=== PATIENT | female | born 1950 | race Caucasian/White ===

== ENCOUNTER → 2023-12-18 09:39 | Outpatient (REF) | payer MEDICARE, BC, SELFPAY ==
[2023-12-18 10:30] LABS: Blood Urea Nitrogen 22 mg/dl (7-17); Calcium 9.8 mg/dl (8.4-10.2); Carbon Dioxide 28 mmol/L (22-30); Chloride 102 mmol/L (98-107); Glucose 317 mg/dl (70-99); Magnesium 1.8 mg/dl (1.6-2.3); Potassium 4.3 mmol/L (3.5-5.1); Sodium 137 mmol/L (135-145); eGFR > 60.00
== END ==
LOC: REG 09:39
PROVIDERS: ATTENDING PHYSICIAN Internal Medicine Cardiovascular Disease; FAMILY PHYSICIAN Internal Medicine Cardiovascular Disease; REFERRING PHYSICIAN Internal Medicine
DX: I50.20 Unspecified systolic (congestive) heart failure (principal)
CPT/HCPCS: 36415; 80048; 83735

== ENCOUNTER 2024-02-23 18:13 | Outpatient (RCR) | payer MEDICARE, BC, SELFPAY | END 2024-02-23 23:59 | disposition home or self-care (01) | LOC: CRHB 18:13 | PROVIDERS: ATTENDING PHYSICIAN Internal Medicine Cardiovascular Disease | DX: I50.22 Chronic systolic (congestive) heart failure (principal); I25.10 Atherosclerotic heart disease of native coronary artery without angina pectoris; Z95.1 Presence of aortocoronary bypass graft; Z95.5 Presence of coronary angioplasty implant and graft | CPT/HCPCS: G0422 ==

== ENCOUNTER 2024-02-26 12:10 | Observation (INO) | payer MEDICARE, BC, SELFPAY ==
[2024-02-26] VITALS (32 sets, daily range): BP systolic 77–124; BP diastolic 41–84; BMI 28.7; BMI 29.1
[2024-02-26 08:13] LABS: Glucose - Point of Care 239 mg/dl (70-99)
[2024-02-26] MEDS: ZOFRAN 4 MG IV (08:38)
--- NOTE | 2024-02-26 08:42 | ED.GENMED ---
History of Present Illness
<Francy Bond NP - Last Filed: 02/26/24 15:59>
General
Chief Complaint: Fainting/Passed Out
Source: patient
Exam Limitations: none
Time Seen by Provider: 02/26/24 08:11
Nursing documentation reviewed up to this point in time: agreed with
Travel History
Have you had any contact with someone who has COVID-19?: No
Do you have any symptoms of coronavirus? Fever > 100 degrees, chills, cough, shortness of breath, sore throat, loss of taste or smell, muscle aches, or headache?: No
History of Present Illness
History of Present Illness:
73-year-old female with history of CHF HFrEF 35% , HTN, HLD, GERD, brittle IDDM, sleep apnea with CPAP, RA, hypothyroid, near syncope on Midodrine, presents from cardiac rehab for near syncope.
Patient had quadruple bypass 06/2023, was to start cardiac rehab in 07/2023 but at her first visit had near syncope so it was put off until today when she was just started again, her first day back again and again at 7:30 AM while sitting watching TV
'I got all sweaty and felt like I was going to pass out.' [place] nauseous but no vomiting. She states the TV screen got all blurry, she was nauseous and lightheaded, no loss of consciousness but near syncope.
She had a bagel for breakfast at 6:45.
Currently feels nauseous and lightheaded. Denies CP, SOB, abdominal pain. No UTI symptoms. Appetite has been good.
She has a history of near syncope. Between s incident and now she has had 3 near syncopal episodes at home where she just sits down and her gets her some water and it passes.
Had defibrillator implanted ICD dual chamber 12/12/23
11/15/2023 due to hypotension, her and Coreg was reduced to 12.5 mg twice a day, Lasix was reduced to 40 mg daily and Aldactone placed on hold 11/15/2023
11/20/23 with hypotension and near syncope: She misunderstood and has continued to take Lasix 40 mg twice a day and Aldactone 12.5 mg daily. Is on Midodrine 2.5 mg BID
Past History
<Francy Bond, METER REPAIRER HELPER - Last Filed: 02/26/24 15:59>
Past History
ED Past Medical History: Asthma, HTN, IDDM and Other (Rheumatoid arthritis)
ED Past Surgical History: Cardiac, Gynecological and Orthopedic
Patient has exhibited threatening behavior?: No
PSI?: No
Social History
Tobacco: Non-smoker
Alcohol: None
Drug: None
Review of Systems
<Francy Bond, METER REPAIRER HELPER - Last Filed: 02/26/24 15:59>
Review of Systems
Allergies reviewed?: Yes
All Other Systems: ROS reviewed and negative except as documented in HPI and ROS
Constitutional: Reports fatigue
Respiratory: Denies trouble breathing
Cardiac: Reports diaphoresis; Denies chest pain, palpitations or syncope (near syncope)
ABD/GI: Reports nausea and vomiting; Denies abdominal pain, diarrhea, bloody stools, black stools or anorexia
: Denies dysuria, frequency or difficulty voiding
Musculoskeletal: Reports no symptoms
Skin: Reports no symptoms
Neurological: Reports no symptoms
Phy Exam
<Francy Bond, METER REPAIRER HELPER - Last Filed: 02/26/24 15:59>
Physical Exam
Physical Exam:
GENERAL: No acute distress. A&Ox3.
CONSTITUTIONAL: Afebrile.
EYES: PERRL, conjunctivae normal
ENMT: moist mucus membranes, Pharynx nl
RESPIRATORY: Regular respirations, nonlabored, lungs clear.
CARDIOVASCULAR: Regular rate and rhythm, no murmurs, no rubs.
GI: Soft, nontender, normal BS
MUSCULOSKELETAL: Moves with ease. Well perfused.
SKIN: Warm, dry, pink
PSYCH: Normal mood and affect. Well kept, interactive and appropriate
NEUROLOGIC: Awake, alert and oriented. No focal neurological deficits
Course
<Francy Bond METER REPAIRER HELPER - Last Filed: 02/26/24 15:59>
Orders/Labs/Results
Orders:
Orders
02/26/24 08:11
Electrocardiogram (*1) Urgent
Reason for Study: Syncope
02/26/24 08:12
EKG- Treatment ONCE
02/26/24 08:35
Ondansetron Injectable [Zofran] 4 mg .ROUTE .[facility]
02/26/24 08:37
Ondansetron Injectable [Zofran] 4 mg IV NOW STA
02/26/24 08:38
0.9% Sodium Chloride 500 ml [Nss] 500 ml IV BOLUS
02/26/24 08:40
CMP [Comprehensive Metabolic Panel] Urgent
Complete Blood Count/With Diff Urgent
NT-proBNP Urgent
Comment: ADD ON
Troponin I Urgent
02/26/24 08:54
CR Chest - 2 Views Urgent
Comment:
Reason For Exam: near syncope, hypotension
02/26/24 09:00
Add On- LAB Urgent
Tests Added?: Pto BNP
02/26/24 Lunch
1800 calorie (15 carb) Diabetic
At Your Request: Limited Participation
02/26/24 10:45
CARDIOLOGY CONSULT Urgent
Consulting Provider: Kaitlin Mcclellan
Was physician already notified: Yes
Reason for consult: Near syncope, hypotension
02/26/24 11:43
Admit/Transfer Patient As Directed
Co-Sign Provider:
Level of Care: Observation services
Assign to:: Telemetry
Physician / Group: Eugenio
Diagnosis: Near syncope
Reason for Telemetry: Syncope
Date to Stop Telemetry: 02/28/24
Time to Stop Telemetry: 11:00
02/26/24 11:55
Code Status As Directed
Resuscitation Status: Full Code
02/26/24 15:35
Acetaminophen [Tylenol] 1,000 mg PO BIDPRN PRN
Butalb/Acetaminophen/Caffeine [Fioricet] 1 tab PO Q6H PRN
Dextrose 50%-Water [Dextrose 50% Syringe] 12.5 grams IV [id number] PRN
Glucagon [GlucaGen] 1 mg IM PRN PRN
Nitroglycerin Sublingual [Nitrostat (Sublingual)] 0.4 mg SL PRN PRN
02/26/24 15:35
Activity As Directed
Activity Level: Ambulate
Bedside Glucose Monitoring As Directed
Frequency: AC&HS
Comment: Change to q6h if pt on TPN, tube feeding or not eating
Orthostatic Vital Signs As Directed
Orthostatic VS Frequency: Daily
DX Deep Vein Thrombosis Video Routine
02/26/24 16:30
Insulin Aspart Corrective Low [Novolog Flexpen-Low Resistance] See Protocol SC AC
02/26/24 18:00
Enoxaparin Sodium [Lovenox] 40 mg SC QPM
Midodrine [ProAmatine] 5 mg PO TID@0800,1300,1800
02/26/24 20:00
Carvedilol [Coreg] 12.5 mg PO BID
METFORMIN HCl [Glucophage] 1,000 mg PO BID
Sacubitril 24/Valsartan 26 [Entresto 24 mg/26 mg] 1 tab PO BID
02/26/24 22:00
Atorvastatin [Lipitor] 80 mg PO HS
Insulin Glargine Lantus [Lantus] 18 units Subcutaneous Insulin Syringe [Syringe-Insulin] 0 unit SC HS
Lorazepam [Ativan] 0.5 mg PO HS
Montelukast Sodium [Singulair] 10 mg PO HS
02/27/24 06:00
Glycohemoglobin (HgbA1c) IN AM
Levothyroxine [Synthroid] 75 mcg PO DAILY@0600
02/27/24 08:00
Aspirin Low Dose EC [Aspir Low (Enteric Coated)] 81 mg PO DAILY
Cholecalciferol (Vitamin D3) [VITAMIN D3 (cholecalciferol)] 50 mcg PO DAILY
Clopidogrel Bisulfate [Plavix] 75 mg PO DAILY
Furosemide [Lasix] 20 mg PO DAILY
ISOSORBIDE MONOnitrate ER [Imdur (Extended Release)] 30 mg PO DAILY
Magnesium Oxide 500 mg PO DAILY
Pantoprazole [Protonix] 40 mg PO DAILY
Spironolactone [Aldactone] 12.5 mg PO DAILY
Venlafaxine Extended Release [Effexor Xr] 150 mg PO DAILY
Venlafaxine Extended Release [Effexor Xr] 75 mg PO DAILY
leflunomide 10 mg PO DAILY
02/28/24 11:00
DC Protocol for Telemetry ONCE
Abnormal Lab Results
02/26/24 02/26/24
08:11 08:40
RBC 4.06 L 10^6/uL
(4.20-5.40)
Hgb 11.7 L g/dL
(12.0-16.0)
Hct 36.5 L %
(37.0-47.0)
MCHC 32.1 L g/dL
(33.0-37.0)
RDW 15.1 H %
(11.5-14.5)
MPV 11.6 H fL
(7.4-10.4)
BUN 25 H mg/dl
(7-17)
Glucose 197 H mg/dl
(70-99)
POC Glucose 239 H mg/dl
(70-99)
02/26/24 08:40
02/26/24 08:40
Vital Signs
Initial and Last Documented VS:
Initial Vital Signs
Temp Pulse Resp BP
97.4 F 78 18 86/47
02/26/24 08:13 02/26/24 08:13 02/26/24 08:13 02/26/24 08:13
Last Documented Vital Signs
Temp Pulse Resp BP Pulse Ox
97.4 F 76 20 108/59 96
02/26/24 08:13 02/26/24 15:30 02/26/24 15:30 02/26/24 15:08 02/26/24 13:15
Farm Equipment Mechanic Apprentice consulted with Physician
Farm Equipment Mechanic Apprentice consulted with physician?: Yes
Name of Physician Consulted: Reynaldo
<Guillermo Jacobs, DO - Last Filed: 02/26/24 09:09>
Orders/Labs/Results
Orders:
Orders
02/26/24 08:11
Electrocardiogram (*1) Urgent
Reason for Study: Syncope
02/26/24 08:12
EKG- Treatment ONCE
02/26/24 08:35
Ondansetron Injectable [Zofran] 4 mg .ROUTE .[facility]
02/26/24 08:37
Ondansetron Injectable [Zofran] 4 mg IV NOW STA
02/26/24 08:38
0.9% Sodium Chloride 500 ml [Nss] 500 ml IV BOLUS
02/26/24 08:40
CMP [Comprehensive Metabolic Panel] Urgent
Complete Blood Count/With Diff Urgent
NT-proBNP Urgent
Comment: ADD ON
Troponin I Urgent
02/26/24 08:54
CR Chest - 2 Views Urgent
Comment:
Reason For Exam: near syncope, hypotension
02/26/24 09:00
Add On- LAB Urgent
Tests Added?: Pto BNP
02/26/24 Lunch
1800 calorie (15 carb) Diabetic
At Your Request: Limited Participation
02/26/24 10:45
CARDIOLOGY CONSULT Urgent
Consulting Provider: Kaitlin Mcclellan
Was physician already notified: Yes
Reason for consult: Near syncope, hypotension
02/26/24 11:43
Admit/Transfer Patient As Directed
Co-Sign Provider:
Level of Care: Observation services
Assign to:: Telemetry
Physician / Group: Eugenio
Diagnosis: Near syncope
Reason for Telemetry: Syncope
Date to Stop Telemetry: 02/28/24
Time to Stop Telemetry: 11:00
02/26/24 11:55
Code Status As Directed
Resuscitation Status: Full Code
02/26/24 15:35
Acetaminophen [Tylenol] 1,000 mg PO BIDPRN PRN
Butalb/Acetaminophen/Caffeine [Fioricet] 1 tab PO Q6H PRN
Dextrose 50%-Water [Dextrose 50% Syringe] 12.5 grams IV [id number] PRN
Glucagon [GlucaGen] 1 mg IM PRN PRN
Nitroglycerin Sublingual [Nitrostat (Sublingual)] 0.4 mg SL PRN PRN
02/26/24 15:35
Activity As Directed
Activity Level: Ambulate
Bedside Glucose Monitoring As Directed
Frequency: AC&HS
Comment: Change to q6h if pt on TPN, tube feeding or not eating
Orthostatic Vital Signs As Directed
Orthostatic VS Frequency: Daily
DX Deep Vein Thrombosis Video Routine
02/26/24 16:30
Insulin Aspart Corrective Low [Novolog Flexpen-Low Resistance] See Protocol SC AC
02/26/24 18:00
Enoxaparin Sodium [Lovenox] 40 mg SC QPM
Midodrine [ProAmatine] 5 mg PO TID@0800,1300,1800
02/26/24 20:00
Carvedilol [Coreg] 12.5 mg PO BID
METFORMIN HCl [Glucophage] 1,000 mg PO BID
Sacubitril 24/Valsartan 26 [Entresto 24 mg/26 mg] 1 tab PO BID
02/26/24 22:00
Atorvastatin [Lipitor] 80 mg PO HS
Insulin Glargine Lantus [Lantus] 18 units Subcutaneous Insulin Syringe [Syringe-Insulin] 0 unit SC HS
Lorazepam [Ativan] 0.5 mg PO HS
Montelukast Sodium [Singulair] 10 mg PO HS
02/27/24 06:00
Glycohemoglobin (HgbA1c) IN AM
Levothyroxine [Synthroid] 75 mcg PO DAILY@0600
02/27/24 08:00
Aspirin Low Dose EC [Aspir Low (Enteric Coated)] 81 mg PO DAILY
Cholecalciferol (Vitamin D3) [VITAMIN D3 (cholecalciferol)] 50 mcg PO DAILY
Clopidogrel Bisulfate [Plavix] 75 mg PO DAILY
Furosemide [Lasix] 20 mg PO DAILY
ISOSORBIDE MONOnitrate ER [Imdur (Extended Release)] 30 mg PO DAILY
Magnesium Oxide 500 mg PO DAILY
Pantoprazole [Protonix] 40 mg PO DAILY
Spironolactone [Aldactone] 12.5 mg PO DAILY
Venlafaxine Extended Release [Effexor Xr] 150 mg PO DAILY
Venlafaxine Extended Release [Effexor Xr] 75 mg PO DAILY
leflunomide 10 mg PO DAILY
02/28/24 11:00
DC Protocol for Telemetry ONCE
Abnormal Lab Results
02/26/24 02/26/24
08:11 08:40
RBC 4.06 L 10^6/uL
(4.20-5.40)
Hgb 11.7 L g/dL
(12.0-16.0)
Hct 36.5 L %
(37.0-47.0)
MCHC 32.1 L g/dL
(33.0-37.0)
RDW 15.1 H %
(11.5-14.5)
MPV 11.6 H fL
(7.4-10.4)
BUN 25 H mg/dl
(7-17)
Glucose 197 H mg/dl
(70-99)
POC Glucose 239 H mg/dl
(70-99)
02/26/24 08:40
02/26/24 08:40
Vital Signs
Initial and Last Documented VS:
Initial Vital Signs
Temp Pulse Resp BP
97.4 F 78 18 86/47
02/26/24 08:13 02/26/24 08:13 02/26/24 08:13 02/26/24 08:13
Last Documented Vital Signs
Temp Pulse Resp BP Pulse Ox
97.4 F 76 20 108/59 96
02/26/24 08:13 02/26/24 15:30 02/26/24 15:30 02/26/24 15:08 02/26/24 13:15
<Francy Bond METER REPAIRER HELPER - Last Filed: 02/26/24 15:59>
MDM/Problems Addressed
Differential Diagnosis Includes:
Volume depletion/dehydration, infection/sepsis, cardiac dysrhythmia, pericardial effusion, orthostatic hypotension, vaso vagal episode
MDM/Problems Addressed:
73-year-old female with history of CHF HFrEF 35% , HTN, HLD, GERD, brittle IDDM, sleep apnea with CPAP, RA, hypothyroid presents from cardiac rehab for near syncope.
Patient had quadruple bypass 06/2023, was to start cardiac rehab in 07/2023 but at her first visit had near syncope so it was put off until today when she was just started again, her first day back again and again at 7:30 AM while sitting watching TV
'I got all sweaty and felt like I was going to pass out.' [place] nauseous but no vomiting. She states the TV screen got all blurry, she was nauseous and lightheaded, no loss of consciousness but near syncope.
She had a bagel for breakfast at 6:45.
Currently feels nauseous and lightheaded. Denies CP, SOB, abdominal pain. No UTI symptoms. Appetite has been good.
EKG: NSR, low voltage, no change
She has a history of near syncope. Between s incident and now she has had 3 near syncopal episodes at home where she just sits down and her gets her some water and it passes.
Had defibrillator implanted ICD dual chamber 12/12/23
11/15/2023 due to hypotension, her and Coreg was reduced to 12.5 mg twice a day, Lasix was reduced to 40 mg daily and Aldactone placed on hold 11/15/2023
11/20/23 with hypotension and near syncope: She misunderstood and has continued to take Lasix 40 mg twice a day and Aldactone 12.5 mg daily. Is on Midodrine 2.5 mg BID
Pt vomited, BP 79/46 HR 72
No sign of infection, EKG NSR,low voltage
Plan: Gentle fluid resuscitation, recheck orthostatics after IVFs, check medications,
Case discussed with Dr. Jacobs, bedside US completed with no significant finding.
9:33 AM
CBC with no clinically significant abnormality
CMP: BUN 25 otherwise no clinically significant abnormality. Fluids infusing . glucose 197
Troponin WNL
1035
X-ray radiology report read: No acute disease of the chest. Mild cardiomegaly. Stable
Plan: Admit: Persistent hypotension with near syncope despite being on midodrine.
Hospitalist notified of admission: The discussed better follow-up with primary care
<Francy Bond NP - Last Filed: 02/26/24 15:59>
*EKG
EKG Intrepretation Date: 02/26/24
Interpretation: normal
Rate: normal
Rhythm: sinus
[place]: normal axis
Interval: normal interval
QRS Pattern: low voltage
Ischemia: no ischemia
*Critical Care Note
Total Time (30-74mins, 75-104mins- exclusive of procedures): Not Applicable
ED Attending Note
<Francy Bond METER REPAIRER HELPER - Last Filed: 02/26/24 15:59>
-
Portions of this chart may have been created with voice recognition software.� Occasional wrong word or��sound alike� substitutions may have occurred due to the inherent limitations of voice recognition software.
<Guillermo Jacobs DO - Last Filed: 02/26/24 09:09>
ED Attending Note
Patient seen and examined by attending physician: Yes
I performed the substantive portion of visit, reviewed & personally made and approve the management plan that is documented in note by myself or ARCENIO.: Yes
Discharge Plan
Departure
Patient Disposition: Admit
Date of Disposition: 02/26/24
Time of Disposition: 10:45
Admit to: Telemetry
Presentation/result/management discussed w/ accepting MD/DO: Hospitalist
Condition: Fair
Discharge Problem:
Acute hypotension, Near syncope
Interventions
Interventions:
*Risk Screen - Suicide Last Done: 02/26/24 08:13
*General Assessment Last Done: 02/26/24 08:13
*Neglect/Abuse Screening Last Done: 02/26/24 08:13
ED- Fall Risk Assessment Last Done: 02/26/24 15:52
*Nursing Disposition Last Done: 02/26/24 15:52
ED- Cardiac Assessment Last Done: 02/26/24 08:30
ED- Neurological Assessment Last Done: 02/26/24 08:30
Discharge Date and Time
Discharge Date/Time: 02/26/24 15:53
[2024-02-26 08:50] LABS: % Basophils 0.6 % (0-2); % Eosinophils 1.6 % (0-6); % Immature Granulocytes 0.4 % (0-0.5); % Lymphocytes 26.7 % (20.5-51.1); % Monocytes 6.2 % (1.7-9.3); % Neutrophils 64.5 % (42.2-75.2); Absolute Basophils 0.1 10^3/uL (0-0.2); Absolute Eosinophils 0.1 10^3/uL (0-0.7); Absolute Lymphocytes 2.3 10^3/uL (1.2-3.4); Absolute Monocytes 0.5 10^3/uL (0.1-0.6); Absolute Neutrophils 5.5 10^3/uL (1.4-6.5); Hematocrit 36.5 % (37.0-47.0); Hemoglobin 11.7 g/dL (12.0-16.0); Mean Corp Hgb Conc. 32.1 g/dL (33.0-37.0); Mean Corpuscular Hgb 28.8 pg (27.0-31.0); Mean Corpuscular Volume 89.9 fL (81.0-99.0); Mean Platelet Volume 11.6 fL (7.4-10.4); Nucleated Red Blood Cells % 0 %; Platelet Count 212 10^3/uL (130-400); Red Blood Cell Count 4.06 10^6/uL (4.20-5.40); Red Cell Dist. Width 15.1 % (11.5-14.5); White Blood Cell Count 8.5 10^3/uL (4.8-10.8)
[2024-02-26] MEDS: NSS 500 IV (08:54)
[2024-02-26 09:10] LABS: ALT (SGPT) < 10 U/L (0-35); AST (SGOT) 15 U/L (14-36); Albumin 3.8 g/dl (3.5-5.0); Alkaline Phosphatase 76 U/L (38-126); Blood Urea Nitrogen 25 mg/dl (7-17); Calcium 9.6 mg/dl (8.4-10.2); Carbon Dioxide 25 mmol/L (22-30); Chloride 106 mmol/L (98-107); Estimated Creatinine Clearance 51 ml/min; Glucose 197 mg/dl (70-99); Potassium 4.5 mmol/L (3.5-5.1); Sodium 137 mmol/L (135-145); Total Bilirubin 0.2 mg/dl (0.2-1.3); Total Protein 6.3 g/dl (6.3-8.2); eGFR > 60.00
[2024-02-26 09:16] LABS: Troponin I < 0.012 ng/ml
[2024-02-26 10:39] LABS: NT-proBNP 1410 pg/ml
--- NOTE | 2024-02-26 12:02 | HPS.HSE ---
Family Physician
-
Family Physician: Melinda Stoddard
Chief Complaint
-
Near syncope
History of Present Illness
73-year-old female who went to cardiac rehab early this morning, was sitting watching TV when she felt sweaty and nauseous and was feeling faint. No loss of consciousness.
Does not regularly check her blood pressure at home but when she does check it it is notably low with systolic readings in the 90s.
Denies any recent changes in her medications. Isosorbide dinitrate was started a few months ago but changed to Imdur one month ago due to side effects.
Has stable exertional dyspnea, denies chest pain or pressure.
Medical History
Past Medical History
Past Medical History: Reports Other
Additional Past Medical History:
CAD
Chronic systolic heart failure
DM2
Essential hypertension
Rheumatoid arthritis
Past Surgical History: Reports Gynocological, Orthopedic and Other
Additional Past Surgical History:
CABG June 2023
ICD November 2023
Social History
Tobacco: Non-smoker
Alcohol: None
Drug: None
Personal:
Living: With Family
Family History
Family History: Not pertinent
Allergies / Home Medications
Allergies reflects when Allergies were last updated in [facility].
Home Medications with original date entered in [facility]
Allergy/Medication List:
Allergies
Allergy/AdvReac Type Severity Reaction Status Date / Time
adalimumab [From Humira] Allergy cough Verified 02/26/24 08:17
empagliflozin Allergy Rash Verified 02/26/24 08:17
[From Jardiance]
infliximab [From Remicade] Allergy Rash Verified 02/26/24 08:17
monosodium glutamate Allergy CONGESTION Verified 02/26/24 08:17
[Monosodium Glutamate]
candles, gas,diesel,cleaning Allergy difficulty Uncoded 02/26/24 08:17
suppli breathing
Home Medications
pantoprazole 40 mg tablet,delayed release 40 mg PO DAILY Gastrointestinal Issue 06/07/23
venlafaxine 150 mg capsule,extended release 24 hr 150 mg PO DAILY Mental Health/Anxiety 06/16/23
insulin glargine U-300 conc 300 unit/mL (3 mL) subcutaneous pen (Toujeo Max U-300 SoloStar) 34 unit SC HS Diabetes 07/30/23
levothyroxine 75 mcg tablet 75 mcg PO DAILY Thyroid 07/30/23
metformin 500 mg tablet 1,000 mg PO BID Diabetes 07/30/23
montelukast 10 mg tablet 10 mg PO HS Allergies 07/30/23
venlafaxine 75 mg capsule,extended release 24 hr 75 mg PO DAILY Mental Health/Anxiety 07/30/23
lamzkjtvph-putfgogmpasej-twlejvqc 50 mg-325 mg-40 mg tablet 1 tab PO Q6H PRN migraine headache 08/29/23
insulin aspart U-100 100 unit/mL (3 mL) subcutaneous pen (Novolog FlexPen U-100 Insulin aspart) 0 sliding scale dose SC DIRECTED Diabetes 09/01/23
Orencia 750 mg IV Q4W rheumatoid arthritis 11/01/23
atorvastatin 80 mg tablet 80 mg PO HS High Cholesterol 11/01/23
acetaminophen 500 mg tablet (Tylenol Extra Strength) 1,000 mg PO BIDPRN PRN mild pain 11/20/23
aspirin 81 mg tablet,delayed release 81 mg PO DAILY Blood Clot Prevention/Tx 11/20/23
cholecalciferol (vitamin D3) 25 mcg (1,000 unit) tablet 50 mcg PO DAILY Supplement 11/20/23
magnesium oxide 400 mg PO DAILY Supplement 11/20/23
nitroglycerin 0.4 mg sublingual tablet 0.4 mg sublingual PRN PRN chest pain 11/20/23
sacubitril 24 mg-valsartan 26 mg tablet (Entresto) 1 tab PO BID Heart Disease/Condition 12/12/23
carvedilol 25 mg tablet 25 mg PO BID Heart Condition/blood pressure 02/26/24
clopidogrel 75 mg tablet 75 mg PO DAILY Blood Clot Prevention/Tx 02/26/24
evolocumab 140 mg/mL subcutaneous pen injector (Homer Onofreick) 140 mg SC .[id number] High Cholesterol [1st & 15th of month] 02/26/24
furosemide 40 mg tablet 20 mg PO DAILY Fluid Retention/Swelling 02/26/24
isosorbide mononitrate 30 mg tablet,extended release 24 hr 30 mg PO DAILY Heart Disease/Condition 02/26/24
leflunomide 10 mg tablet 10 mg PO DAILY rheumatoid arthritis 02/26/24
lorazepam 0.5 mg tablet 0.5 mg PO HS sleep/anxiety 02/26/24
midodrine 2.5 mg tablet 2.5 mg PO BID blood pressure 02/26/24
spironolactone 25 mg tablet (Aldactone) 12.5 mg PO DAILY Blood Pressure/edema 02/26/24
Review of Systems
-
History Source: Patient
A 12 point ROS was completed and negative except as noted: Yes
Abdomen/GI: Reports Nausea
Neurological: Reports Other (Lightheaded)
Physical Exam
Vital Signs
Vital Signs
Temp Pulse Resp BP Pulse Ox
97.4 F 65 17 91/60 98
02/26/24 08:13 02/26/24 10:40 02/26/24 10:40 02/26/24 10:40 02/26/24 10:40
Physical Exam
General: Well Developed, Well Nourished, No Apparent Distress and Comfortable
HEENT: NormoCephalic, Anicteric and Moist mucous membranes
Respiratory: Clear
Cardiac: S1/S2 and Regular Rhythm
Breast: Deferred by me
GI: Soft, Non Tender and Non Distended
Genito-urinary: Deferred by me
Musculoskeletal: No Clubbing, No Cyanosis and No Edema
Skin: Warm and Dry
Neuro: AO x 3
Hematologic/Lymphatic: No Lymphadenopathy
Psych: Calm
Laboratory Results
-
02/26/24 08:40
02/26/24 08:40
Laboratory Results
Total Bilirubin 0.2 mg/dl (0.2-1.3) 02/26/24 08:40
AST 15 U/L (14-36) 02/26/24 08:40
ALT < 10 U/L (0-35) 02/26/24 08:40
Alkaline Phosphatase 76 U/L (38-126) 02/26/24 08:40
Troponin I < 0.012 ng/ml 02/26/24 08:40
Impression/Plan
-
Near syncope -suspect related to hypotension. Rule out orthostatic hypotension. Admit to telemetry. ICD interrogated, report pending.
Would lower dose of carvedilol if okay with cardiology. Compression stockings. Check orthostatic numbers. Would increase dose of midodrine.
Chronic heart failure reduced EF -stable.
CAD/CABG -stable.
DM2 with hyperglycemia -check hemoglobin A1c. She admits to erratic control at home. She manages the diabetes with NovoLog sliding scale along insulin glargine 34 units at bedtime.
Rheumatoid arthritis -stable.
Essential hypertension -hypotensive in the emergency room on arrival, improved with IV fluid administration.
Chronic normocytic anemia -hemoglobin at baseline. Suspect chronic inflammatory anemia.
Full code
updated at the bedside.
--- NOTE | 2024-02-26 14:18 | CON.CAR ---
Addendum entered and electronically signed by Kaitlin Mcclellan MD 02/26/24 16:23:
I saw and examined the patient.
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
Comment: She presented with episode of near syncope. She was at cardiac rehab. She has episodes of syncope/near syncope with low blood pressure on midodrine. Recently medications were altered. She is somewhat overwhelmed by her medications. She
does her best to drink fluid and also to maintain 36 to 48 ounces daily. She is not significantly orthostatic but her blood pressure is on the low side and her heart rate increases with changing position. She received a half a liter of fluid in
the ER and is feeling better.
Given recurrent event she will be monitored overnight.
-Check orthostatic vital signs in the morning
-Reduce carvedilol back to 12.5 mg twice daily was recently increased to 12.5 mg in the morning and 25 mg in the p.m.
-Reassess Lasix dose in the morning.
-Continue other medications.
-I have encouraged her to wear compression stockings on in the morning and off in the p.m. We discussed isometric exercises. We discussed caution with changing position
-Device check negative for arrhythmia.
Hopefully will be stable for discharge tomorrow. Follow-up with usual code number stamper.
Original Note:
Consultation
Consultation Request
Date/Time Consultation Requested: 02/26/24
Date/Time Consultation Performed: 02/26/24
Requesting Provider: Dr. Becker
Performing Provider: Dr. Kaitlin Mcclellan
Reason for Consultation: Orthostasis, near syncope
Medical History
-
History of Present Illness:
Patient came to [facility] from cardiac rehab after an episode of near syncope and cardiology has been consulted. Patient had CABG 06/21/23 with FIELD to LAD, SVG to D2, SVG to RPDA and RPLB 06/21/23. CABG was complicated by intraoperative posterolateral ST
segment elevation with regional wall motion abnormality on chest closure concerning for possible saphenous vein graft kinking between RPDA and are PLB anastomosis, requiring the chest to be reopened twice with repositioning of the saphenous vein
graft and subsequent ischemic cardiomyopathy with LVEF of 45 to 50%. Patient had stress test 08/16/23 for GARCIA and EF of 33% with fixed defects consistent with infarction without clear reversibility.�Cath then performed 08/29/23 which showed
significant anastomotic lesion of the FIELD graft and after extensive discussion decision was made to intervene on her lower sioux LAD and on 08/31/23 she underwent 2 overlapping stents to the mid LAD with an excellent angiographic result.�Patient did
well for a period and then had recurrence of GARCIA and underwent a PET pharmacologic perfusion imaging on 10/19/23 which showed LVEF of 32% and defects with no reversibility and this prompted her to undergo repeat catheterization 11/01/23 which showed
stable lower sioux CAD with patent SVG to RPDA and SVG to diagonal, but there was 50% in-stent restenosis of mid to distal LAD stents and significantly elevated right and left filling pressures, so patient was admitted for IV diuresis. Patient then had
COVID. Patient has had ER visits for near syncope twice in 11/2023 and again today. She says that she awoke feeling like it was a regular day and ate a bagel and took her insulin. She went to an information session at cardiac rehab and while seated
felt diaphoretic and lightheaded and felt like she was going to pass out. A cardiac certified rehabilitation counselor helped her to a sofa and once she laid flat she felt better.
PMH:
h/o near syncope
s/p Medtronic DC ICD 12/12/23
s/p COVID-19 10/2023
CAD
s/p CABG x4 FIELD to LAD, SVG to RPDA-RPL, SVG to D1 06/21/2023
Redo sternotomy x2 d/t intraoperative kinking of SVG-RPDA
s/p two overlapping LAD stents after having new 90-95% lesion at FIELD-LAD anastomosis 08/31/2023
mid to distal LAD stents are patent with a focal area of eccentric 50% in-stent restenosis at the level of the stents overlapping by cath 11/01/23
Chronic systolic HFrEF, 35%
Ischemic cardiomyopathy
HTN
HLD
IDDM
ROBERT
RA
Past Medical History
Past Medical History: Other (in HPI)
Past Surgical History: Cardiac (CABG x4 FIELD to LAD, SVG to RPDA-RPL, SVG to D1(06/21/2023), s/p 2 overlapping LAD stents 08/31/2023), Gynecological (partial hysterectomy) and Orthopedic (TKR 2009, left humeral ORIF 2017, Left reverse shoulder 2020)
Social History
Tobacco: Non-Smoker
Alcohol: None
Drug: None
Personal:
Living: With Family
Family History
Family History: CAD, Cancer and Hypertension
Allergies / Home Medications
Allergy/AdvReac Type Severity Reaction Status Date / Time
adalimumab [From Humira] Allergy cough Verified 02/26/24 08:17
empagliflozin Allergy Rash Verified 02/26/24 08:17
[From Jardiance]
infliximab [From Remicade] Allergy Rash Verified 02/26/24 08:17
monosodium glutamate Allergy CONGESTION Verified 02/26/24 08:17
[Monosodium Glutamate]
candles, gas,diesel,cleaning Allergy difficulty Uncoded 02/26/24 08:17
suppli breathing
�Medication �Instructions �Recorded �Confirmed �Type
pantoprazole 40 mg tablet,delayed 40 mg PO DAILY Gastrointestinal 06/07/23 02/26/24 History
release Issue
venlafaxine 150 mg 150 mg PO DAILY Mental 06/16/23 02/26/24 History
capsule,extended release 24 hr Health/Anxiety
insulin glargine U-300 conc 300 34 unit SC HS Diabetes 07/30/23 02/26/24 History
unit/mL (3 mL) subcutaneous pen
(Toujeo Max U-300 SoloStar)
levothyroxine 75 mcg tablet 75 mcg PO DAILY Thyroid 07/30/23 02/26/24 History
metformin 500 mg tablet 1,000 mg PO BID Diabetes 07/30/23 02/26/24 History
montelukast 10 mg tablet 10 mg PO HS Allergies 07/30/23 02/26/24 History
venlafaxine 75 mg capsule,extended 75 mg PO DAILY Mental 07/30/23 02/26/24 History
release 24 hr Health/Anxiety
xtwkdeljmr-knhcfsiqkbhuv-tvnjjdte 1 tab PO Q6H PRN migraine headache 08/29/23 02/26/24 History
50 mg-325 mg-40 mg tablet
insulin aspart U-100 100 unit/mL 0 sliding scale dose SC 09/01/23 02/26/24 History
(3 mL) subcutaneous pen (Novolog DIRECTED Diabetes
FlexPen U-100 Insulin aspart)
Orencia 750 mg IV Q4W rheumatoid arthritis 11/01/23 02/26/24 History
atorvastatin 80 mg tablet 80 mg PO HS High Cholesterol 11/01/23 02/26/24 History
acetaminophen 500 mg tablet 1,000 mg PO BIDPRN PRN mild pain 11/20/23 02/26/24 History
(Tylenol Extra Strength)
aspirin 81 mg tablet,delayed 81 mg PO DAILY Blood Clot 11/20/23 02/26/24 History
release Prevention/Tx
cholecalciferol (vitamin D3) 25 50 mcg PO DAILY Supplement 11/20/23 02/26/24 History
mcg (1,000 unit) tablet
magnesium oxide 400 mg PO DAILY Supplement 11/20/23 02/26/24 History
nitroglycerin 0.4 mg sublingual 0.4 mg sublingual PRN PRN chest 11/20/23 02/26/24 History
tablet pain
sacubitril 24 mg-valsartan 26 mg 1 tab PO BID Heart 12/12/23 02/26/24 History
tablet (Entresto) Disease/Condition
carvedilol 25 mg tablet 25 mg PO BID Heart Condition/blood 02/26/24 02/26/24 History
pressure
clopidogrel 75 mg tablet 75 mg PO DAILY Blood Clot 02/26/24 02/26/24 History
Prevention/Tx
evolocumab 140 mg/mL subcutaneous 140 mg SC .[id number] High 02/26/24 02/26/24 History
pen injector (Homer Cardona) Cholesterol [1st & 15th of month]
furosemide 40 mg tablet 20 mg PO DAILY Fluid 02/26/24 02/26/24 History
Retention/Swelling
isosorbide mononitrate 30 mg 30 mg PO DAILY Heart 02/26/24 02/26/24 History
tablet,extended release 24 hr Disease/Condition
leflunomide 10 mg tablet 10 mg PO DAILY rheumatoid arthritis 02/26/24 02/26/24 History
lorazepam 0.5 mg tablet 0.5 mg PO HS sleep/anxiety 02/26/24 02/26/24 History
midodrine 2.5 mg tablet 2.5 mg PO BID blood pressure 02/26/24 02/26/24 History
spironolactone 25 mg tablet 12.5 mg PO DAILY Blood 02/26/24 02/26/24 History
(Aldactone) Pressure/edema
Review of Systems
-
History Source: Patient and Family ( bedside helping with HPI)
All other systems: Negative unless noted
Physical Exam
Vital Signs
Temp Pulse Resp BP Pulse Ox
97.4 F 70 21 107/63 98
02/26/24 08:13 02/26/24 12:15 02/26/24 12:15 02/26/24 12:10 02/26/24 12:15
GEN: NAD, AAOx3
HEENT: EOMI, MMM
LUNGS: CTA B/L, no wheezes/rales
CV: Reg, S1/S2, no murmur, rubs or gallops
ABD: soft, BS+, NT/ND
EXT: No edema, clubbing or cyanosis
NEURO: Gross non-focal
SKIN: No rash,warm, dry, pink
Lab Results
02/26/24 08:40
02/26/24 08:40
Troponin I < 0.012 ng/ml 02/26/24 08:40
Jxn-P-Dgdbdgygeis Pept 1410 pg/ml 02/26/24 08:40
Impression / Plan
-
PCP: Melinda Stoddard MD
Rice Farmer: Dr. Cece Dyer
Impression:
Near syncope 02/26/24
h/o near syncope
s/p Medtronic DC ICD 12/12/23
s/p COVID-19 10/2023
CAD
s/p CABG x4 FIELD to LAD, SVG to RPDA-RPL, SVG to D1 06/21/2023
Redo sternotomy x2 d/t intraoperative kinking of SVG-RPDA
s/p two overlapping LAD stents after having new 90-95% lesion at FIELD-LAD anastomosis 08/31/2023
mid to distal LAD stents are patent with a focal area of eccentric 50% in-stent restenosis at the level of the stents overlapping by cath 11/01/23
Chronic systolic HFrEF, 35%
Ischemic cardiomyopathy
HTN
HLD
IDDM
ROBERT
RA
Echo 10/11/23: Moderately reduced LV systolic function, LVEF of 38%,� Hypokinesis of the inferior lateral, anterior, mid and distal septal dominguez. Stage I diastolic dysfunction suggestive of abnormal relaxation. Normal right ventricular size.� Normal
right ventricular function. Mitral valve opens normally. Thickened mitral valve leaflets. Mild mitral regurgitation. Thickened, trileaflet aortic valve with normal leaflet excursion.� Aortic valve sclerosis.� Trace aortic regurgitation is seen.
Plan:
-Patient came to [facility] from cardiac rehab after an episode of near syncope and cardiology has been consulted. Patient had CABG 06/21/23 with FIELD to LAD, SVG to D2, SVG to RPDA and RPLB 06/21/23. CABG was complicated by intraoperative posterolateral ST
segment elevation with regional wall motion abnormality on chest closure concerning for possible saphenous vein graft kinking between RPDA and are PLB anastomosis, requiring the chest to be reopened twice with repositioning of the saphenous vein
graft and subsequent ischemic cardiomyopathy with LVEF of 45 to 50%. Patient had stress test 08/16/23 for GARCIA and EF of 33% with fixed defects consistent with infarction without clear reversibility.�Cath then performed 08/29/23 which showed
significant anastomotic lesion of the FIELD graft and after extensive discussion decision was made to intervene on her lower sioux LAD and on 08/31/23 she underwent 2 overlapping stents to the mid LAD with an excellent angiographic result.�Patient did
well for a period and then had recurrence of GARCIA and underwent a PET pharmacologic perfusion imaging on 10/19/23 which showed LVEF of 32% and defects with no reversibility and this prompted her to undergo repeat catheterization 11/01/23 which showed
stable lower sioux CAD with patent SVG to RPDA and SVG to diagonal, but there was 50% in-stent restenosis of mid to distal LAD stents and significantly elevated right and left filling pressures, so patient was admitted for IV diuresis. Patient then had
COVID. Patient has had ER visits for near syncope twice in 11/2023 and again today. She says that she awoke feeling like it was a regular day and ate a bagel and took her insulin. She went to an information session at cardiac rehab and while seated
felt diaphoretic and lightheaded and felt like she was going to pass out. A cardiac certified rehabilitation counselor helped her to a sofa and once she laid flat she felt better.
-Checked orthostatic VS myself and supine BP 114/54 with HR 77, sitting BP 110/84 with HR 92 and she felt lightheaded, standing BP 108/74 with HR 96 and ongoing lightheadedness.
-Device checked in ER and [facility] report read by me, no arrhythmia events on device. No shocks.
-Patient's midodrine was increased to 2.5 mg BID at office visit 01/18/24, but she does not have that on her list and she does not think she took midodrine this AM because she thinks she usually takes it at 1300 daily. Patient and agreeable to
increasing midodrine to 2.5 mg TID.
-Overall patient is overwhelmed at the number of meds that she takes and finds it difficult to track med changes.
-At office visit 01/18/24 her Coreg was increased to 25 mg AM and 12.5 mg PM daily. Will decreased back to Coreg 12.5 mg BID.
-Cont Entresto 24/26 mg BID
-Cont spironolactone 12.5 mg daily.
-Cont Imdur ER 30 mg daily given CAD as noted.
-Patient has compression socks at home, but forgets to wear them. Will order for now.
[2024-02-26] MEDS: ProAmatine 2.5 MG PO (15:08)
--- NOTE | 2024-02-26 16:33 | PTCARENOTE ---
Received pt from ER via stretcher, accompanied by ER staff. Pt AAO x3, AGUILAR, able to transfer to bed with assist x1, currently denies weakness/dizziness. Fall prec initiated. VSS. Placed on telemetry:NSR. On room air- pulse ox 98%, no SOB noted.
Abd large, soft, to start 1800 armand diet. pt DTV; will void in BR with assistance. Afebrile, warms and dry, BGM intact lt upper arm. Oriented to 4east, currently resting comfortably. Will continue to monitor.
[2024-02-26 16:38] LABS: Glucose - Point of Care 94 mg/dl (70-99)
[2024-02-26] MEDS: TYLENOL 1000 MG PO (16:53)
[2024-02-26] MEDS: NOVOLOG FLEXPEN-LOW RESISTANCE SC (17:40)
[2024-02-26] MEDS: ProAmatine 5 MG PO (17:41)
[2024-02-26] MEDS: LOVENOX 40 MG SC (17:41)
[2024-02-26] MEDS: COREG 12.5 MG PO (20:05)
[2024-02-26] MEDS: ENTRESTO 24 MG/26 MG 1 TAB PO (20:05)
[2024-02-26] MEDS: FIORICET 1 TAB PO (20:05)
[2024-02-26 20:14] LABS: Glucose - Point of Care 194 mg/dl (70-99)
[2024-02-26] MEDS: GLUCOPHAGE 1000 MG PO (20:17)
[2024-02-26] MEDS: LIPITOR 80 MG PO (20:18)
[2024-02-26] MEDS: LANTUS 0.179999999999999993 UNITS SC (20:18)
[2024-02-26] MEDS: SINGULAIR 10 MG PO (20:18)
[2024-02-26] MEDS: ATIVAN 0.5 MG PO (22:15)
[2024-02-27] MEDS: FIORICET 1 TAB PO (03:04)
[2024-02-27 03:15] VITALS: BP 97/50
[2024-02-27] MEDS: SYNTHROID 75 MCG PO (05:52)
[2024-02-27 06:00] VITALS: BMI 29.3
[2024-02-27 08:09] VITALS: BP 118/63
--- NOTE | 2024-02-27 08:36 | W.PN.HOSP.TC ---
Addendum entered and electronically signed by Narciso Becker DO 02/27/24 11:17:
Not orthostatic based on levels.
Stable for discharge. Confirmed with cardiology.
Outpatient follow-up.
Original Note:
Today's Communication/Plan
-
Possible discharge
Assessment / Plan
Assessment / Plan
Gen-AAOx3, NAD
HEENT-NC, AT, anicteric, clear oral mm
Neck-supple
CV-reg, no M, +S1/S2
Lungs-clear B/L
Abd-soft, NT, ND
Ext-no edema
Musculoskeletal-no cyanosis, clubbing
Skin-warm and dry
Neuro-grossly non-focal
Psych-calm, cooperative
Near syncope -suspect related to orthostatic hypotension. Device interrogation was normal. Carvedilol dose reduced to 12.5 mg twice daily. Midodrine dose increased. Compression stockings have been applied. Check orthostatic vitals today.
Chronic heart failure reduced EF -stable.
CAD/CABG -stable.
DM2 with hyperglycemia -check hemoglobin A1c. She admits to erratic control at home. She manages the diabetes with NovoLog sliding scale along insulin glargine 34 units at bedtime.
Rheumatoid arthritis -stable.
Essential hypertension -hypotensive in the emergency room on arrival, improved with IV fluid administration.
Chronic normocytic anemia -hemoglobin at baseline. Suspect chronic inflammatory anemia.
Full code
Dispo -possible discharge today if stable. Awaiting orthostatic numbers. Follow-up with PCP and cardiology.
Anticipated Discharge: Today
Subjective/Interval History
-
Date of Service: February 27, 2024
Patient seen and examined. No complaints currently. Had a migraine headache last night.
Objective Data
-
Vital Signs:
Vital Signs
Temp Pulse Resp BP Pulse Ox
98 F 74 18 118/63 98
02/27/24 08:09 02/27/24 08:09 02/27/24 08:09 02/27/24 08:09 02/27/24 08:09
I&O
02/26/24 02/27/24 02/28/24
06:59 06:59 06:59
Intake Total 1200 / 1200
Output Total 200 / 200 900 / 900
Balance 1000 / 1000 -900 / -900
Review of Systems
-
History Source: Patient
All other systems: Reviewed and negative
[2024-02-27 09:02] LABS: Glucose - Point of Care 155 mg/dl (70-99)
[2024-02-27] MEDS: NOVOLOG FLEXPEN-LOW RESISTANCE 1 UNITS SC (09:02)
[2024-02-27] MEDS: PLAVIX 75 MG PO (09:03)
[2024-02-27] MEDS: LASIX 20 MG PO (09:03)
[2024-02-27] MEDS: GLUCOPHAGE 1000 MG PO (09:04)
[2024-02-27] MEDS: EFFEXOR XR 150 MG PO (09:05)
[2024-02-27] MEDS: IMDUR (EXTENDED RELEASE) 30 MG PO (09:05)
[2024-02-27] MEDS: PROTONIX 40 MG PO (09:05)
[2024-02-27] MEDS: MAGNESIUM OXIDE 500 MG PO (09:05)
[2024-02-27] MEDS: ProAmatine 5 MG PO (09:05)
[2024-02-27] MEDS: EFFEXOR XR 75 MG PO (09:05)
[2024-02-27] MEDS: ENTRESTO 24 MG/26 MG 1 TAB PO (09:05)
[2024-02-27] MEDS: COREG 12.5 MG PO (09:05)
[2024-02-27] MEDS: ALDACTONE 12.5 MG PO (09:06)
[2024-02-27] MEDS: VITAMIN D3 (cholecalciferol) 50 MCG PO (09:06)
[2024-02-27] MEDS: ASPIR LOW (ENTERIC COATED) 81 MG PO (09:07)
[2024-02-27 09:31] LABS: Glycohemoglobin (HgbA1c) 9.2 % (4.0-5.6)
[2024-02-27 09:50] VITALS: BP 116/69; BP 140/78; BP 152/74; PULSE 77; PULSE 85; PULSE 86
--- NOTE | 2024-02-27 11:13 | CM ---
CM met with pt bedside
Pt resides with her spouse in a 2SH with 4STE
14 steps to 2nd floor
Pt notes independence with her ADLs w/o ADs
She has a WW for use as needed and has a cpap
Pt has a assistant health educator who visits weekly and she attends cardiac rehab
PCP- Melinda Stoddard
Rx- Oren
Pt is OBS- HO verbally reviewed
Copy provided
Discharge Disposition- home, no needs anticipated
--- NOTE | 2024-02-27 11:21 | W.DS.TRANS ---
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
-
Discharge Instructions:
Discharge Diagnosis/Procedures Near syncope, hypotension
Diet Diabetic, Carb Controlled
Activity As tolerated
Driving Restrictions As prior to admission
Bathing Restrictions None
Instructions:
Stand-Alone Forms:
Changes to Home Medications: Yes
Discharge Medications:
DC Medications w/original date entered in [employer]
pantoprazole 40 mg tablet,delayed release 40 mg PO DAILY Gastrointestinal Issue 06/07/23
venlafaxine 150 mg capsule,extended release 24 hr 150 mg PO DAILY Mental Health/Anxiety 06/16/23
insulin glargine U-300 conc 300 unit/mL (3 mL) subcutaneous pen (Toujeo Max U-300 SoloStar) 34 unit SC HS Diabetes 07/30/23
levothyroxine 75 mcg tablet 75 mcg PO DAILY Thyroid 07/30/23
metformin 500 mg tablet 1,000 mg PO BID Diabetes 07/30/23
montelukast 10 mg tablet 10 mg PO HS Allergies 07/30/23
venlafaxine 75 mg capsule,extended release 24 hr 75 mg PO DAILY Mental Health/Anxiety 07/30/23
uofopkyepc-jyvbhldhjvfye-cvkdopcy 50 mg-325 mg-40 mg tablet 1 tab PO Q6H PRN migraine headache 08/29/23
insulin aspart U-100 100 unit/mL (3 mL) subcutaneous pen (Novolog FlexPen U-100 Insulin aspart) 0 sliding scale dose SC DIRECTED Diabetes 09/01/23
Orencia 750 mg IV Q4W rheumatoid arthritis 11/01/23
atorvastatin 80 mg tablet 80 mg PO HS High Cholesterol 11/01/23
acetaminophen 500 mg tablet (Tylenol Extra Strength) 1,000 mg PO BIDPRN PRN mild pain 11/20/23
aspirin 81 mg tablet,delayed release 81 mg PO DAILY Blood Clot Prevention/Tx 11/20/23
cholecalciferol (vitamin D3) 25 mcg (1,000 unit) tablet 50 mcg PO DAILY Supplement 11/20/23
magnesium oxide 400 mg PO DAILY Supplement 11/20/23
nitroglycerin 0.4 mg sublingual tablet 0.4 mg sublingual PRN PRN chest pain 11/20/23
sacubitril 24 mg-valsartan 26 mg tablet (Entresto) 1 tab PO BID Heart Disease/Condition 12/12/23
clopidogrel 75 mg tablet 75 mg PO DAILY Blood Clot Prevention/Tx 02/26/24
evolocumab 140 mg/mL subcutaneous pen injector (Repatha SureClick) 140 mg SC .[id number] High Cholesterol [ & 15th of month] 02/26/24
furosemide 40 mg tablet 20 mg PO DAILY Fluid Retention/Swelling 02/26/24
isosorbide mononitrate 30 mg tablet,extended release 24 hr 30 mg PO DAILY Heart Disease/Condition 02/26/24
leflunomide 10 mg tablet 10 mg PO DAILY rheumatoid arthritis 02/26/24
lorazepam 0.5 mg tablet 0.5 mg PO HS sleep/anxiety 02/26/24
spironolactone 25 mg tablet (Aldactone) 12.5 mg PO DAILY Blood Pressure/edema 02/26/24
carvedilol 12.5 mg tablet 12.5 mg PO BID #60 tabs 02/27/24
midodrine 5 mg tablet 5 mg PO TID@0800,1300,1800 #90 tabs 02/27/24
Home Medication Changes
Carvedilol dose reduced to 12.5 mg twice daily.
Midodrine dose increased to 5 mg 3 times daily.
Pending Results: No
[2024-02-27 12:10] VITALS: BP 140/79
[2024-02-27 12:30] LABS: Glucose - Point of Care 218 mg/dl (70-99)
[2024-02-27] MEDS: NOVOLOG FLEXPEN-LOW RESISTANCE 2 UNITS SC (12:48)
--- NOTE | 2024-02-27 13:41 | W.PN.CARDCBS ---
Today's Communication / Plan
-
Stable cardiology status for discharge
Okay to resume cardiac rehab
Impression / Plan
-
PCP: Melinda Stoddard MD
Mis Specialist: Dr. Cece Dyer
Impression:
Near syncope 02/26/24
h/o near syncope
s/p Medtronic DC ICD 12/12/23
s/p COVID-19 10/2023
CAD
s/p CABG x4 FIELD to LAD, SVG to RPDA-RPL, SVG to D1 06/21/2023
Redo sternotomy x2 d/t intraoperative kinking of SVG-RPDA
s/p two overlapping LAD stents after having new 90-95% lesion at FIELD-LAD anastomosis 08/31/2023
mid to distal LAD stents are patent with a focal area of eccentric 50% in-stent restenosis at the level of the stents overlapping by cath 11/01/23
Chronic systolic HFrEF, 35%
Ischemic cardiomyopathy
HTN
HLD
IDDM
ROBERT
RA
Echo 10/11/23: Moderately reduced LV systolic function, LVEF of 38%,� Hypokinesis of the inferior lateral, anterior, mid and distal septal dominguez. Stage I diastolic dysfunction suggestive of abnormal relaxation. Normal right ventricular size.� Normal
right ventricular function. Mitral valve opens normally. Thickened mitral valve leaflets. Mild mitral regurgitation. Thickened, trileaflet aortic valve with normal leaflet excursion.� Aortic valve sclerosis.� Trace aortic regurgitation is seen.
Plan:
Etiology of near syncope may have been an element of orthostasis
She is not orthostatic today
Coreg has been decreased
Midodrine has been increased to 5 mg p.o. 3 times daily
Device check okay
Stable cardiology status for discharge
Discussed with primary service
PREADMIT DATA
-Patient came to [facility] from cardiac rehab after an episode of near syncope and cardiology has been consulted. Patient had CABG 06/21/23 with FIELD to LAD, SVG to D2, SVG to RPDA and RPLB 06/21/23. CABG was complicated by intraoperative posterolateral ST
segment elevation with regional wall motion abnormality on chest closure concerning for possible saphenous vein graft kinking between RPDA and are PLB anastomosis, requiring the chest to be reopened twice with repositioning of the saphenous vein
graft and subsequent ischemic cardiomyopathy with LVEF of 45 to 50%. Patient had stress test 08/16/23 for GARCIA and EF of 33% with fixed defects consistent with infarction without clear reversibility.�Cath then performed 08/29/23 which showed
significant anastomotic lesion of the FIELD graft and after extensive discussion decision was made to intervene on her jamul LAD and on 08/31/23 she underwent 2 overlapping stents to the mid LAD with an excellent angiographic result.�Patient did
well for a period and then had recurrence of GARCIA and underwent a PET pharmacologic perfusion imaging on 10/19/23 which showed LVEF of 32% and defects with no reversibility and this prompted her to undergo repeat catheterization 11/01/23 which showed
stable jamul CAD with patent SVG to RPDA and SVG to diagonal, but there was 50% in-stent restenosis of mid to distal LAD stents and significantly elevated right and left filling pressures, so patient was admitted for IV diuresis. Patient then had
COVID. Patient has had ER visits for near syncope twice in 11/2023 and again today. She says that she awoke feeling like it was a regular day and ate a bagel and took her insulin. She went to an information session at cardiac rehab and while seated
felt diaphoretic and lightheaded and felt like she was going to pass out. A cardiac rehab consultant helped her to a sofa and once she laid flat she felt better.
Progress Note - Mis Specialist
Subjective
Date of Service: February 27, 2024
No complaints.
Objective
Labs:
02/26/24 08:40
02/26/24 08:40
Labs
Hgb 11.7 g/dL (12.0-16.0) L 02/26/24 08:40
Hct 36.5 % (37.0-47.0) L 02/26/24 08:40
Plt Count 212 10^3/uL (130-400) 02/26/24 08:40
Sodium 137 mmol/L (135-145) 02/26/24 08:40
Potassium 4.5 mmol/L (3.5-5.1) 02/26/24 08:40
BUN 25 mg/dl (7-17) H 02/26/24 08:40
Creatinine 1.0 mg/dL (0.6-1.0) 02/26/24 08:40
Glucose 197 mg/dl (70-99) H 02/26/24 08:40
Troponins
02/26/24
08:40
Troponin I < 0.012
Vital Signs and I&O:
Vital Signs
Temp Pulse Resp BP Pulse Ox
97.9 F 84 18 140/79 99
02/27/24 12:10 02/27/24 12:10 02/27/24 12:10 02/27/24 12:10 02/27/24 12:10
Vital Signs
Temp Pulse Resp BP Pulse Ox
97.9 F 84 18 140/79 99
02/27/24 12:10 02/27/24 12:10 02/27/24 12:10 02/27/24 12:10 02/27/24 12:10
Intake & Output
02/25/24 02/26/24 02/27/24 02/28/24
06:59 06:59 06:59 06:59
Intake Total 1200 / 1200
Output Total 200 / 200 900 / 900
Balance 1000 / 1000 -900 / -900
Physical Exam
Physical Exam
General: Well developed, well nourished in NAD.
Neck: Supple, no JVD, HJR, carotids +2 B/L, no bruits bilaterally.
Heart: Non displaced PMI, RRR, no murmurs, No S3, S4, no rubs.
Lungs: Clear to auscultation bilaterally, no wheeze, rhonchi, rubs bilaterally,
normal expiratory phase.
Extremities: No clubbing, cyanosis or edema bilaterally.
Neuro: Grossly nonfocal, awake, alert and oriented x3.
[2024-02-27] MEDS: ProAmatine PO (14:20)
== END 2024-02-27 14:57 | disposition home or self-care (01) ==
LOC: 4 EAST ACU 12:10
PROVIDERS: Emergency Medicine; ADMITTING PHYSICIAN Hospitalist; CONSULT PHYSICIAN Internal Medicine Cardiovascular Disease; EMERGENCY PHYSICIAN Emergency Medicine; FAMILY PHYSICIAN Internal Medicine
DX: R55 Syncope and collapse (principal); I95.1 Orthostatic hypotension; I11.0 Hypertensive heart disease with heart failure; I50.22 Chronic systolic (congestive) heart failure; G47.33 Obstructive sleep apnea (adult) (pediatric); E03.9 Hypothyroidism, unspecified; E11.65 Type 2 diabetes mellitus with hyperglycemia; K21.9 Gastro-esophageal reflux disease without esophagitis; D64.9 Anemia, unspecified; I25.10 Atherosclerotic heart disease of native coronary artery without angina pectoris; I25.5 Ischemic cardiomyopathy; E78.5 Hyperlipidemia, unspecified; M06.9 Rheumatoid arthritis, unspecified; J45.909 Unspecified asthma, uncomplicated; Z79.4 Long term (current) use of insulin; Z95.1 Presence of aortocoronary bypass graft; Z95.810 Presence of automatic (implantable) cardiac defibrillator; Z88.8 Allergy status to other drugs, medicaments and biological substances; Z91.048 Other nonmedicinal substance allergy status; Z79.84 Long term (current) use of oral hypoglycemic drugs; Z79.890 Hormone replacement therapy; Z86.16 Personal history of COVID-19; Z95.5 Presence of coronary angioplasty implant and graft
CPT/HCPCS: 93284; 71046; 80053; 82962; 83036; 83880; 84484; 85025; 93005; 96361; 96374; 99285; G0378

== ENCOUNTER 2024-04-12 14:30 | Outpatient (RCR) | payer MEDICARE, BC, SELFPAY ==
[2024-03-18 13:27] LABS: Glucose - Point of Care 161 mg/dl (70-99)
[2024-03-18 14:00] LABS: Glucose - Point of Care 124 mg/dl (70-99)
[2024-03-20 13:04] LABS: Glucose - Point of Care 155 mg/dl (70-99)
[2024-03-20 13:49] LABS: Glucose - Point of Care 111 mg/dl (70-99)
[2024-03-22 13:04] LABS: Glucose - Point of Care 113 mg/dl (70-99)
[2024-03-22 14:05] LABS: Glucose - Point of Care 109 mg/dl (70-99)
[2024-03-25 13:10] LABS: Glucose - Point of Care 257 mg/dl (70-99)
[2024-03-25 13:55] LABS: Glucose - Point of Care 160 mg/dl (70-99)
[2024-03-27 13:06] LABS: Glucose - Point of Care 196 mg/dl (70-99)
[2024-03-27 13:52] LABS: Glucose - Point of Care 154 mg/dl (70-99)
[2024-04-01 13:09] LABS: Glucose - Point of Care 254 mg/dl (70-99)
[2024-04-01 13:52] LABS: Glucose - Point of Care 218 mg/dl (70-99)
[2024-04-05 13:06] LABS: Glucose - Point of Care 118 mg/dl (70-99)
[2024-04-05 14:07] LABS: Glucose - Point of Care 94 mg/dl (70-99)
[2024-04-05 14:21] LABS: Glucose - Point of Care 97 mg/dl (70-99)
[2024-04-05 14:37] LABS: Glucose - Point of Care 131 mg/dl (70-99)
[2024-04-10 13:06] LABS: Glucose - Point of Care 266 mg/dl (70-99)
[2024-04-10 14:06] LABS: Glucose - Point of Care 167 mg/dl (70-99)
[2024-04-12 13:13] LABS: Glucose - Point of Care 180 mg/dl (70-99)
[2024-04-12 14:06] LABS: Glucose - Point of Care 76 mg/dl (70-99)
[2024-04-12 14:33] LABS: Glucose - Point of Care 121 mg/dl (70-99)
== END 2024-04-12 23:59 | disposition home or self-care (01) ==
LOC: CRHB 14:30
PROVIDERS: ATTENDING PHYSICIAN Internal Medicine Cardiovascular Disease
DX: I50.22 Chronic systolic (congestive) heart failure (principal); I50.20 Unspecified systolic (congestive) heart failure (principal)
CPT/HCPCS: 82962; G0422; G0423

== ENCOUNTER → 2024-04-15 07:13 | Outpatient (REF) | payer MEDICARE, BC, SELFPAY | LOC: HWRCS 07:13 | PROVIDERS: FAMILY PHYSICIAN Internal Medicine | DX: I50.20 Unspecified systolic (congestive) heart failure (principal) | CPT/HCPCS: 93306 ==

== ENCOUNTER 2024-04-29 14:23 | Outpatient (RCR) | payer MEDICARE, BC, SELFPAY ==
[2024-04-17 13:14] LABS: Glucose - Point of Care 180 mg/dl (70-99)
[2024-04-29 13:04] LABS: Glucose - Point of Care 204 mg/dl (70-99)
[2024-04-29 13:59] LABS: Glucose - Point of Care 126 mg/dl (70-99)
== END 2024-04-29 23:59 | disposition home or self-care (01) ==
LOC: CRHB 14:23
PROVIDERS: ATTENDING PHYSICIAN Internal Medicine Cardiovascular Disease
DX: I50.22 Chronic systolic (congestive) heart failure (principal)
CPT/HCPCS: 82962; G0422; G0423

== ENCOUNTER → 2024-05-20 09:28 | Outpatient (REF) | payer MEDICARE, BC, SELFPAY ==
[2024-05-20 11:03] LABS: % Eosinophils 2.3 % (0-6); % Immature Granulocytes 0.3 % (0-0.5); % Lymphocytes 29.2 % (20.5-51.1); % Monocytes 7.8 % (1.7-9.3); % Neutrophils 59.4 % (42.2-75.2); Absolute Basophils 0.1 10^3/uL (0-0.2); Absolute Eosinophils 0.1 10^3/uL (0-0.7); Absolute Lymphocytes 1.8 10^3/uL (1.2-3.4); Absolute Monocytes 0.5 10^3/uL (0.1-0.6); Absolute Neutrophils 3.7 10^3/uL (1.4-6.5); Hematocrit 37.5 % (37.0-47.0); Hemoglobin 12.3 g/dL (12.0-16.0); Mean Corp Hgb Conc. 32.8 g/dL (33.0-37.0); Mean Corpuscular Hgb 28.7 pg (27.0-31.0); Mean Corpuscular Volume 87.6 fL (81.0-99.0); Mean Platelet Volume 11.7 fL (7.4-10.4); Nucleated Red Blood Cells % 0 %; Platelet Count 250 10^3/uL (130-400); Red Blood Cell Count 4.28 10^6/uL (4.20-5.40); Red Cell Dist. Width 15.4 % (11.5-14.5); White Blood Cell Count 6.2 10^3/uL (4.8-10.8)
[2024-05-20 11:12] LABS: INR 0.99; PT 13.1 Sec (11.4-14.6)
[2024-05-20 12:05] LABS: ALT (SGPT) < 10 U/L (0-35); AST (SGOT) 17 U/L (14-36); Albumin 4.4 g/dl (3.5-5.0); Alkaline Phosphatase 73 U/L (38-126); Blood Urea Nitrogen 21 mg/dl (7-17); Carbon Dioxide 26 mmol/L (22-30); Chloride 101 mmol/L (98-107); Glucose 166 mg/dl (70-99); Magnesium 1.6 mg/dl (1.6-2.3); Potassium 4.4 mmol/L (3.5-5.1); Sodium 138 mmol/L (135-145); Total Bilirubin 0.3 mg/dl (0.2-1.3); Total Protein 6.9 g/dl (6.3-8.2); eGFR > 60.00
[2024-05-20 12:11] LABS: Glycohemoglobin (HgbA1c) 8.1 % (4.0-5.6)
== END ==
LOC: SDSPAT 09:28
PROVIDERS: ATTENDING PHYSICIAN Internal Medicine Cardiovascular Disease; FAMILY PHYSICIAN Internal Medicine; OTHER PHYSICIAN Internal Medicine Cardiovascular Disease
DX: Z01.818 Encounter for other preprocedural examination (principal); I25.5 Ischemic cardiomyopathy; E11.9 Type 2 diabetes mellitus without complications
CPT/HCPCS: 36415; 80053; 83036; 83735; 85025; 85610; 93005

== ENCOUNTER 2024-05-29 06:29 | Day surgery (SDC) | payer MEDICARE, BC, SELFPAY ==
[2024-05-20 10:35] VITALS: BMI 28.6
[2024-05-29 07:17] LABS: Glucose - Point of Care 175 mg/dl (70-99)
--- NOTE | 2024-05-29 08:59 | ITS.CL.ICD ---
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
Implantable Cardioverter Defibrillator
Procedure Report:
ICD POCKET REVISION
Date: May 29, 2024
Primary care physician: Dr. Melinda Stoddard
Primary phlebotomy program coordinator: Dr Cece Dyer
PROCEDURES:
ICD pocket revision
INDICATION FOR PROCEDURE:
She has previously undergone ICD implantation in November 2023.
She has since developed pain at the ICD pocket
There is normal function of the ICD and lead system. There is no physical exam finding or suggestion of device or lead system erosion or malfunction.
During outpatient evaluation I recommended that we not move forward device repositioning as am not sure this will eliminate her skin sensitivity symptoms. However she tells me that her symptoms are so disturbing that it is affecting her activities
of daily living and she strongly wants to move forward with attempted device repositioning to alleviate her discomfort.
PROCEDURE:
Lidocaine with epi was used for local anesthesia. An incision was made over the previous incision and the device was carefully dissected from the pocket. The device header was from the pectoral fascia. Careful dissection was performed
to access a deeper prepectoral pocket. Additionally, pocket was extended more medially and more superiorly. Once the pocket was irrigated with antibiotic solution, Surgiflo was used to obtain the additional hemostasis. An antibiotic pouch was
also utilized. The device was tethered to the pectoral fascia using both suture ports on the device header in an attempt to provide better device stability. The device was then closed in the typical fashion.
DEVICE and LEADS:
ICD Medtronic [id number], SN RSM [id number], Left Pectoral
RA Medtronic 5076
RV Medtronic 6935
DEVICE TESTING:
Sensing: RA 2.5 mV, RV 3.1 mV
Capture: RA 0.5 V@0.5ms, RV 0.75 V@0.5ms
Ohms: RA 420, RV 680
FINAL PROGRAMMING:
Esvin Pacing: MVP 50 - 130 ppm
Tachy parameters:
VF: 188 bpm, Shock
VT: 150 bpm, Monitor
COMPLICATIONS:
None
CONCLUSIONS:
Revision of ICD pocket with relocation of the ICD lead to a deeper subfascial prepectoral location and also relocation of the device more medially (2cm) and superiorly (2 cm) to hopefully reduce her discomfort and provide better aesthetics.
RECOMMENDATIONS:
Post op care (tele, CXR, IV abx).
In-Office wound check in 5-7 days.
Continue follow-up care with Dr. Cece Dyer
Copy to: Dr. Cece Dyer
[2024-05-29 09:28] LABS: Glucose - Point of Care 154 mg/dl (70-99)
== END 2024-05-29 10:08 | disposition home or self-care (01) ==
LOC: CATH 06:29
PROVIDERS: ATTENDING PHYSICIAN Internal Medicine Cardiovascular Disease; FAMILY PHYSICIAN Internal Medicine; OTHER PHYSICIAN Internal Medicine Cardiovascular Disease
DX: T82.847A Pain due to cardiac prosthetic devices, implants and grafts, initial encounter (principal); Y83.1 Surgical operation with implant of artificial internal device as the cause of abnormal reaction of the patient, or of later complication, without mention of misadventure at the time of the procedure; Z95.1 Presence of aortocoronary bypass graft; Z95.5 Presence of coronary angioplasty implant and graft; I11.0 Hypertensive heart disease with heart failure; I50.22 Chronic systolic (congestive) heart failure; E78.5 Hyperlipidemia, unspecified; J45.909 Unspecified asthma, uncomplicated; E11.9 Type 2 diabetes mellitus without complications; E03.9 Hypothyroidism, unspecified; G47.00 Insomnia, unspecified; G47.33 Obstructive sleep apnea (adult) (pediatric); F41.9 Anxiety disorder, unspecified; F32.A Depression, unspecified; E55.9 Vitamin D deficiency, unspecified; M19.90 Unspecified osteoarthritis, unspecified site; Z79.82 Long term (current) use of aspirin; Z79.899 Other long term (current) drug therapy; Z79.02 Long term (current) use of antithrombotics/antiplatelets; Z79.890 Hormone replacement therapy; Z79.84 Long term (current) use of oral hypoglycemic drugs
CPT/HCPCS: 33999; 82962

== ENCOUNTER 2024-06-12 10:49 | Outpatient (RCR) | payer MEDICARE, BC, SELFPAY ==
[2024-05-13 09:26] LABS: Glucose - Point of Care 167 mg/dl (70-99)
[2024-05-13 10:36] LABS: Glucose - Point of Care 153 mg/dl (70-99)
[2024-05-15 09:24] LABS: Glucose - Point of Care 163 mg/dl (70-99)
[2024-05-15 10:20] LABS: Glucose - Point of Care 125 mg/dl (70-99)
[2024-06-10 09:22] LABS: Glucose - Point of Care 179 mg/dl (70-99)
[2024-06-10 10:16] LABS: Glucose - Point of Care 151 mg/dl (70-99)
[2024-06-12 09:21] LABS: Glucose - Point of Care 278 mg/dl (70-99)
[2024-06-12 10:20] LABS: Glucose - Point of Care 105 mg/dl (70-99)
[2024-06-12 10:58] LABS: Glucose - Point of Care 136 mg/dl (70-99)
== END 2024-06-12 23:59 | disposition home or self-care (01) ==
LOC: CRHB 10:49
PROVIDERS: ATTENDING PHYSICIAN Internal Medicine Cardiovascular Disease
DX: I50.22 Chronic systolic (congestive) heart failure (principal)
CPT/HCPCS: 82962; G0422; G0423

== ENCOUNTER 2024-06-26 15:30 | Outpatient (RCR) | payer MEDICARE, BC, SELFPAY ==
[2024-02-23 13:10] LABS: Glucose - Point of Care 261 mg/dl (70-99)
[2024-02-23 14:01] LABS: Glucose - Point of Care 165 mg/dl (70-99)
[2024-02-26 07:57] LABS: Glucose - Point of Care 216 mg/dl (70-99)
[2024-06-19 09:30] LABS: Glucose - Point of Care 303 mg/dl (70-99)
[2024-06-19 09:53] LABS: Glucose - Point of Care 174 mg/dl (70-99)
[2024-06-19 10:26] LABS: Glucose - Point of Care 122 mg/dl (70-99)
[2024-06-21 09:23] LABS: Glucose - Point of Care 209 mg/dl (70-99)
[2024-06-21 10:18] LABS: Glucose - Point of Care 152 mg/dl (70-99)
[2024-06-26 13:18] LABS: Glucose - Point of Care 213 mg/dl (70-99)
[2024-06-26 14:22] LABS: Glucose - Point of Care 143 mg/dl (70-99)
== END 2024-06-26 23:59 | disposition home or self-care (01) ==
LOC: CRHB 15:30
PROVIDERS: ATTENDING PHYSICIAN Internal Medicine Cardiovascular Disease; FAMILY PHYSICIAN Internal Medicine
DX: I50.22 Chronic systolic (congestive) heart failure (principal)
CPT/HCPCS: 82962; G0422; G0423

== ENCOUNTER 2024-07-18 14:33 | Emergency (ER) | payer MEDICARE, BC, SELFPAY ==
[2024-07-18] VITALS (9 sets, daily range): BP systolic 92–136; BP diastolic 50–75; BMI 27.6
--- NOTE | 2024-07-18 15:17 | ED.GENMED ---
History of Present Illness
<Isi Mead PA-C - Last Filed: 07/18/24 23:22>
General
Chief Complaint: Chest Pain
Source: patient
Exam Limitations: none
Time Seen by Provider: 07/18/24 14:56
Nursing documentation reviewed up to this point in time: agreed with
History of Present Illness
History of Present Illness:
Patient is a 73-year-old female with history of CHF, hypertension, hyperlipidemia, CAD, diabetes presenting to the emergency department for evaluation of chest discomfort. Patient reports mid chest discomfort starting on Monday evening after a day
of gardening. She describes it as a pressure type sensation in her mid chest with some radiation around to her mid back. Patient denies any sharp/tearing component to back discomfort. Symptoms have been relatively constant since Monday although
definitely worse with exertion including walking upstairs and when leaning forward. she did have an episode today where the chest pain became worse and she felt short of breath when bending down to flower buncher or picker her cat today. She states that her
breathing feels 'labored '.
Patient denies any fever, chills, diaphoresis, cough. She has had 1 episode of vomiting and a few episodes diarrhea over the past few days.
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
Past History
<Isi Mead PA-C - Last Filed: 07/18/24 23:22>
Past History
ED Past Medical History: Asthma, HTN, IDDM and Other (Rheumatoid arthritis)
ED Past Surgical History: Cardiac, Gynecological and Orthopedic
Patient has exhibited threatening behavior?: No
PSI?: No
Social History
Tobacco: Non-smoker
Alcohol: None
Drug: None
Review of Systems
<Isi Mead PA-C - Last Filed: 07/18/24 23:22>
Review of Systems
Allergies reviewed?: Yes
All Other Systems: ROS reviewed and negative except as documented in HPI and ROS
Phy Exam
<Isi Mead PA-C - Last Filed: 07/18/24 23:22>
Physical Exam
Physical Exam:
Vitals: Patient's vital signs are stable. Afebrile
General: Patient is well appearing, no acute distress
Skin: Warm and dry, no rashes or lesions
Head: Normocephalic, atraumatic
Eyes: Sclera nonicteric. EOMs intact. No nystagmus.
Throat: Protecting airway. Trachea midline
Neck: Normal ROM, no cervical spine tenderness, no meningismus. No JVD
Cardiac: Regular rate and rhythm, no murmurs.
Pulm: Normal respiratory effort, no wheezes, rales, rhonchi heard on exam.
Abdomen: Abdomen soft..
Extremities: No evidence of cyanosis or edema. Palpable and equal distal pulses in bilateral upper and lower extremities.
Neuro: Grossly intact.
Psychiatric: Normal affect.
Scores
<Isi Mead PA-C - Last Filed: 07/18/24 23:22>
Heart Score for Chest Pain Patients
STEMI patient?: No
History: Moderately Suspicious
ECG: Nonspecific Repolarization
Age: >/= 65 years
Risk Factors: >/= 3 Risk Factors or History of CAD
Troponin: </= Normal Limit
Heart Score for Chest Pain Patients: 6
Heart Score Risk: 20.3% MACE over next 6 weeks
Course
<Isi Mead PA-C - Last Filed: 07/18/24 23:22>
Orders/Labs/Results
Orders:
Orders
07/18/24 14:35
Electrocardiogram (*1) Urgent
Reason for Study: Chest Pain
EKG- Treatment ONCE
07/18/24 15:16
CR Chest - 2 Views Urgent
Comment:
Reason For Exam: chest pain, shortness of breath
07/18/24 15:18
Interrogate Pacemaker- Treatment ONCE
07/18/24 15:40
Complete Blood Count/With Diff Urgent
Comprehensive Metabolic Panel Urgent
Lipase Urgent
NT-proBNP Urgent
Troponin I Urgent
07/18/24 18:40
Electrocardiogram (*1) Urgent
Reason for Study: Chest Pain
EKG- Treatment ONCE
07/18/24 18:46
Troponin I Urgent
Abnormal Lab Results
07/18/24
15:40
RBC 4.03 L 10^6/uL
(4.20-5.40)
Hgb 11.7 L g/dL
(12.0-16.0)
Hct 35.0 L %
(37.0-47.0)
MPV 11.0 H fL
(7.4-10.4)
Absolute Neuts (auto) 7.1 H 10^3/uL
(1.4-6.5)
BUN 18 H mg/dl
(7-17)
07/18/24 15:40
07/18/24 15:40
Vital Signs
Initial and Last Documented VS:
Initial Vital Signs
Temp Pulse Resp BP Pulse Ox
98.0 F 87 16 136/68 98
07/18/24 14:41 07/18/24 14:41 07/18/24 14:41 07/18/24 14:41 07/18/24 14:41
Last Documented Vital Signs
Temp Pulse Resp BP Pulse Ox
98.0 F 93 29 101/54 97
07/18/24 14:41 07/18/24 19:45 07/18/24 19:45 07/18/24 19:22 07/18/24 19:30
<Vince Zuniga MD - Last Filed: 07/18/24 18:17>
Orders/Labs/Results
Orders:
Orders
07/18/24 14:35
Electrocardiogram (*1) Urgent
Reason for Study: Chest Pain
EKG- Treatment ONCE
07/18/24 15:16
CR Chest - 2 Views Urgent
Comment:
Reason For Exam: chest pain, shortness of breath
07/18/24 15:18
Interrogate Pacemaker- Treatment ONCE
07/18/24 15:40
Complete Blood Count/With Diff Urgent
Comprehensive Metabolic Panel Urgent
Lipase Urgent
NT-proBNP Urgent
Troponin I Urgent
07/18/24 18:40
Electrocardiogram (*1) Urgent
Reason for Study: Chest Pain
EKG- Treatment ONCE
07/18/24 18:46
Troponin I Urgent
Abnormal Lab Results
07/18/24
15:40
RBC 4.03 L 10^6/uL
(4.20-5.40)
Hgb 11.7 L g/dL
(12.0-16.0)
Hct 35.0 L %
(37.0-47.0)
MPV 11.0 H fL
(7.4-10.4)
Absolute Neuts (auto) 7.1 H 10^3/uL
(1.4-6.5)
BUN 18 H mg/dl
(7-17)
07/18/24 15:40
07/18/24 15:40
Vital Signs
Initial and Last Documented VS:
Initial Vital Signs
Temp Pulse Resp BP Pulse Ox
98.0 F 87 16 136/68 98
07/18/24 14:41 07/18/24 14:41 07/18/24 14:41 07/18/24 14:41 07/18/24 14:41
Last Documented Vital Signs
Temp Pulse Resp BP Pulse Ox
98.0 F 93 29 101/54 97
07/18/24 14:41 07/18/24 19:45 07/18/24 19:45 07/18/24 19:22 07/18/24 19:30
<Isi Mead PA-C - Last Filed: 07/18/24 23:22>
MDM/Problems Addressed
Differential Diagnosis Includes:
Not limited to: Stable angina, unstable angina, pericarditis, pneumonia, acute CHF exacerbation, pneumothorax myocarditis, pericardial effusion,
MDM/Problems Addressed:
73-year-old female with significant cardiac history presenting with 3 days of substernal chest discomfort and associated shortness of breath worse with exertion. No pleuritic component to pain. Vital signs are stable. Physical exam as above.
Patient relatively well-appearing, conversational nontoxic-appearing. Heart regular rate and rhythm. Lungs are clear bilaterally. Patient perfusing well with help with palpable and equal distal pulses in bilateral upper and lower extremities.
Patient does not appear fluid overloaded on exam. EKG obtained in triage shows normal sinus rhythm without any acute ischemic changes. Somewhat low voltage although appears stable from prior EKGs. Will check labs, Trope, BNP. Will check chest
x-ray. Symptoms much more consistent with anginal type pain, low suspicion for aortic dissection. Will hold off on CTA chest for now. Given patient significant cardiac history�will consult cardiology to see patient bedside.
Labs reviewed. No clinically significant abnormalities. Initial troponin normal. BMP 1020�patient does not appear clinically fluid overloaded. Do not suspect CHF as cause of patient symptoms today. Chest x-ray without any acute abnormalities.
Patient was seen at bedside by cardiology who recommended repeat troponin and discharge if stable.
Chronic conditions affecting care:
CHF, hypertension, hyperlipidemia, CAD, diabetes
Acute Exacerbation and/or Progression of Chronic Illness:
N/A
<Isi Mead PA-C - Last Filed: 07/18/24 23:22>
*Radiology
Radiology exam reviewed: preliminary read by ED provider (No acute cardiopulmonary disease) and radiology read reviewed
*Pulse Oximetry
Patient hypoxic: no
*EKG
Interpreted by ED Provider?: Yes
EKG Intrepretation Date: 07/18/24
Interpretation: abnormal
Comparison EKG: changes noted
Heart Rate: 85
Rate: normal
Rhythm: sinus and PVC's
[place]: normal axis
QRS Pattern: low voltage
Ischemia: non-specific ST changes
*Facility Designer Interpretation
Rate: normal
Interpretation: normal
Heart Rate: 68
Rhythm: sinus and PVC's
*Critical Care Note
Total Time (30-74mins, 75-104mins- exclusive of procedures): Not Applicable
Data Reviewed
Further Testing Considered But Not Given:
CTA chest�low suspicion for aortic dissection. Symptoms and history most consistent with anginal type pain.
<Isi Mead PA-C - Last Filed: 07/18/24 23:22>
Patient Management
Discussion with other providers: Linux System Administrator (Dr. Herr and Dr. Dyer)
<Isi Mead PA-C - Last Filed: 07/18/24 23:22>
Update Note
Update Note:
Update: Repeat troponin negative. Patient has remained hemodynamically stable, in no distress. Pacemaker was interrogated which shows 1 nonsustained episode of V. tach yesterday. Patient does have an ICD. Do not suspect this is related to
patient's symptoms. This was discussed with Dr. Dyer who agrees likely unrelated and will follow-up with patient in office. Patient stable for discharge.
ED Attending Note
<Isi Mead PA-C - Last Filed: 07/18/24 23:22>
-
Portions of this chart may have been created with voice recognition software.� Occasional wrong word or��sound alike� substitutions may have occurred due to the inherent limitations of voice recognition software.
<Vince Zuniga MD - Last Filed: 07/18/24 18:17>
ED Attending Note
Patient seen and examined by attending physician: Yes
I performed the substantive portion of visit, reviewed & personally made and approve the management plan that is documented in note by myself or ARCENIO.: Yes
ED Attending Note:
73-year-old female complaining of some exertional chest tightness and shortness of breath over the last 2 to 3 days. Also seems to occur when leaning forward. No symptoms currently. Had a more severe episode earlier today. History of CABG
history of stent.
On exam patient is nontoxic in no distress. Warm and dry. Perfusing well. Lungs clear and equal. Heart regular rate and rhythm. Abdomen soft and nontender. Warm and dry.
EKG with no acute changes. Labs are stable. However patient's description and history are consistent with new onset angina/unstable angina. This is referred to cardiology.
1800.... Discussed with Dr. Herr.... Second troponin and if negative can be discharged to follow-up
Discharge Plan
Departure
Patient Disposition: Home (Routine Discharge)
Date of Disposition: 07/18/24
Time of Disposition: 19:47
Patient with high blood pressure during this ER visit?: Yes
Condition: Good
Covid-19: Not Applicable
Discharge Problem:
Chest pain
Instructions: Chest Pain DCA Follow Up, BLOOD PRESSURE, Chest Pain
Prescriptions:
No Action
pantoprazole 40 mg Tablet,Delayed Release (/Ec)
40 mg PO DAILY
venlafaxine 150 mg Capsule,Extended Release 24hr
150 mg PO DAILY
metformin 500 mg tablet
1,000 mg PO BID
venlafaxine 75 mg capsule,extended release 24hr
75 mg PO DAILY
Rx Instructions:
02/26/24: take w/335ah=191ha total dose
levothyroxine 75 mcg Tablet
75 mcg PO DAILY
montelukast 10 mg Tablet
10 mg PO HS
insulin glargine U-300 conc [Toujeo Max U-300 SoloStar] 300 unit/mL (3 mL) insulin pen
32 unit SC HS
pdpbueqgkv-pizmfnzotdxjc-fbkh 50-325-40 mg Tablet
1 tab PO Q6H PRN (Reason: migraine headache )
insulin aspart U-100 [Novolog FlexPen U-100 Insulin] 100 unit/mL (3 mL) Insulin Pen
0 sliding scale dose SC DIRECTED
Patient Comments:
Rx Instructions:
11/20/2023, if BS 100-150 = 4 units; 151-200 = 6 units; 201-250 = 8 units; 251-300 = 10 units.
Orencia
750 mg IV Q4W
Patient Comments:
11/20/2023, pt states that they get this done at their [facility] ([facility]re[facility]) Q4W. Pt started this infusion on 09/05/2023.
atorvastatin 80 mg tablet
40 mg PO HS
aspirin 81 mg Tablet,Delayed Release (Dr/Ec)
81 mg PO DAILY
acetaminophen [Tylenol Extra Strength] 500 mg Tablet
1,000 mg PO BIDPRN PRN (Reason: mild pain)
nitroglycerin 0.4 mg Tablet, Sublingual
0.4 mg SUBLINGUAL PRN PRN (Reason: chest pain )
cholecalciferol (vitamin D3) 25 mcg (1,000 unit) Tablet
50 mcg PO DAILY
magnesium oxide 400 mg magnesium Tablet
400 mg PO DAILY
Entresto 24-26 mg Tablet
1 tab PO BID
isosorbide mononitrate 30 mg tablet extended release 24 hr
15 mg PO DAILY
lorazepam 0.5 mg tablet
0.5 mg PO HS PRN (Reason: sleep/anxiety )
Repatha SureClick 140 mg/mL pen injector
140 mg SC Q2W
furosemide 40 mg tablet
20 mg PO DAILY
clopidogrel 75 mg tablet
75 mg PO DAILY
spironolactone [Aldactone] 25 mg tablet
12.5 mg PO DAILY
carvedilol 12.5 mg Tablet
12.5 mg PO BID Qty: 60 0RF
midodrine 5 mg Tablet
5 mg PO TID@0800,1300,1800 Qty: 90 0RF
Ozempic 0.25 mg or 0.5 mg (2 mg/3 mL) Pen Injector
0.5 mg SC CABALLERO
Referrals:
Melinda Stoddard DO [Family Provider] -
Cece Dyer DO [Active] - 08/02/24 1:40 pm (You have a cardiology follow up appointment at the [place] office. Please call with questions. )
Activity Restrictions/Additional Instructions:
Return to the emergency department with any chest pain, shortness of breath, sweating, nausea/vomiting, severe abdominal pain, fevers, dizziness, worsening in current symptoms, or any other concerns
-As discussed�you should take it easy and limit your physical activity until cleared by cardiology. It is important stay well-hydrated. You should continue to take all your medications as prescribed.
-Follow-up with cardiology for further evaluation/management
Monitor your symptoms closely and return to the emergency department with any acute worsening/new symptom
Interventions
Interventions:
*Risk Screen - Suicide Last Done: 07/18/24 15:31
*General Assessment Last Done: 07/18/24 15:31
*Neglect/Abuse Screening Last Done: 07/18/24 15:31
ED- Fall Risk Assessment Last Done: 07/18/24 16:22
*ED COVID-19 Vaccine History Last Done: 07/18/24 15:31
*Nursing Disposition Last Done: 07/18/24 20:15
ED- Cardiac Assessment Last Done: 07/18/24 16:21
Discharge Date and Time
Discharge Date/Time: 07/18/24 20:28
Print Language: [id number]
[2024-07-18 15:49] LABS: % Basophils 0.6 % (0-2); % Eosinophils 1.4 % (0-6); % Immature Granulocytes 0.3 % (0-0.5); % Lymphocytes 20.6 % (20.5-51.1); % Monocytes 5.7 % (1.7-9.3); % Neutrophils 71.4 % (42.2-75.2); Absolute Basophils 0.1 10^3/uL (0-0.2); Absolute Eosinophils 0.1 10^3/uL (0-0.7); Absolute Monocytes 0.6 10^3/uL (0.1-0.6); Absolute Neutrophils 7.1 10^3/uL (1.4-6.5); Hemoglobin 11.7 g/dL (12.0-16.0); Mean Corp Hgb Conc. 33.4 g/dL (33.0-37.0); Mean Corpuscular Volume 86.8 fL (81.0-99.0); Nucleated Red Blood Cells % 0 %; Platelet Count 327 10^3/uL (130-400); Red Blood Cell Count 4.03 10^6/uL (4.20-5.40); White Blood Cell Count 9.9 10^3/uL (4.8-10.8)
[2024-07-18 16:11] LABS: ALT (SGPT) < 10 U/L (0-35); AST (SGOT) 19 U/L (14-36); Albumin 4.5 g/dl (3.5-5.0); Alkaline Phosphatase 64 U/L (38-126); Blood Urea Nitrogen 18 mg/dl (7-17); Carbon Dioxide 27 mmol/L (22-30); Chloride 98 mmol/L (98-107); Estimated Creatinine Clearance 51 ml/min; Glucose 99 mg/dl (70-99); Lipase 99 U/L (23-300); Potassium 4.3 mmol/L (3.5-5.1); Sodium 140 mmol/L (135-145); Total Bilirubin 0.3 mg/dl (0.2-1.3); eGFR > 60.00
[2024-07-18 16:19] LABS: NT-proBNP 1020 pg/ml; Troponin I < 0.012 ng/ml
--- NOTE | 2024-07-18 16:29 | CON.CAR ---
Addendum entered and electronically signed by Matthieu Herr DO 07/18/24 21:43:
I saw and examined the patient.
The Data Services Developer's note was reviewed and I agree with the note.
Comment:
Plan:
Multiple complaints and was recommended to go to ER 48 hrs ago and again today after calling office.
Episode of dizziness with taking breaths, episode of vomiting and diarrhea last 2 days. Chest pain is with movement. Some back pain.
Currently denies cp.
she has a complex cardiac history which was reviewed.
Troponin negative. EKG without ischemic changes. Pt recommended admit for observation and further eval of multiple complaints but pt declines
Check second trop, if negative pt will follow up as outpt from cardiac standpoint
Discussed with pt that she may require further ER work up of her other multiple complaints. She and her understand risks of not staying for eval of complaints.
Cont DAPT.
Remains chronically on Entresto, Coreg, Aldactone due to ischemic cardiomyopathy. She did not tolerate Jardiance due to rash and recurrent UTIs. Was being considered for Corlanor as an outpatient if heart rates remained elevated. On p.o. Lasix 20
mg daily
Outpt cardiac follow up to be arranged
Discussed with ER.
-d/w patient and at bedside
Original Note:
Consultation
Consultation Request
Date/Time Consultation Performed: 07/18/24
Requesting Provider: Dr. Zuniga
Performing Provider: Lucinda Wise PA-C for Dr. Herr
Reason for Consultation: CP
Medical History
-
Chief Complaint: CP
History of Present Illness:
Patient has complex cardiac history. Had CABG 06/21/23 with FIELD to LAD, SVG to D2, SVG to RPDA and RPLB 06/21/23. CABG was complicated by intraoperative posterolateral ST segment elevation with regional wall motion abnormality on chest closure
concerning for possible saphenous vein graft kinking between RPDA and are PLB anastomosis, requiring the chest to be reopened twice with repositioning of the saphenous vein graft and subsequent ischemic cardiomyopathy with LVEF of 45 to 50%. Patient
had stress test 08/16/23 for GARCIA and EF of 33% with fixed defects consistent with infarction without clear reversibility.�Cath then performed 08/29/23 which showed significant anastomotic lesion of the FIELD graft and after extensive discussion
decision was made to intervene on her cahto LAD and on 08/31/23 she underwent 2 overlapping stents to the mid LAD with an excellent angiographic result.�Patient did well for a period and then had recurrence of GARCIA and underwent a PET pharmacologic
perfusion imaging on 10/19/23 which showed LVEF of 32% and defects with no reversibility and this prompted her to undergo repeat catheterization 11/01/23 which showed stable cahto CAD with patent SVG to RPDA and SVG to diagonal, but there was 50%
in-stent restenosis of mid to distal LAD stents and significantly elevated right and left filling pressures. She was diuresed. She underwent Medtronic dual-chamber ICD placement 11/2023. At follow-up visit 05/21/2024 complained of discomfort and skin
sensitivity around device and underwent repositioning 05/29/2024. She reports over the last 5 days she has had waxing and waning chest discomfort. She states is worse with bending forward and feels as though she has books on her chest which then
radiates around to her back. She also reports poor appetite with several episodes of diarrhea yesterday and today and 1 episode of vomiting today. She denies sick contacts or fevers and chills. Denies recent trauma to area. She also reports
dizziness with taking deep breaths. She states over the weekend she had significant swelling and took additional Lasix with improvement. She reports her swelling is improved and weights are stable. Cardiology consulted for evaluation of chest
pain. EKG sinus rhythm without acute ischemic changes noted. Initial troponin negative. Currently pain free.
PMH:
CAD
s/p CABG x4 IFELD to LAD, SVG to RPDA-RPL, SVG to D1 06/21/2023
Redo sternotomy x2 d/t intraoperative kinking of SVG-RPDA
s/p two overlapping LAD stents after having new 90-95% lesion at FIELD-LAD anastomosis 08/31/2023
mid to distal LAD stents are patent with a focal area of eccentric 50% in-stent restenosis at the level of the stents overlapping by cath 11/01/23
Chronic systolic HFrEF, EF 35%
Ischemic cardiomyopathy
s/p Medtronic DC ICD 12/12/23
h/o near syncope
HTN
HLD
IDDM
ROBERT
RA
Past Medical History
Past Medical History: Other (in HPI)
Past Surgical History: Cardiac (CABG x4 FIELD to LAD, SVG to RPDA-RPL, SVG to D1(06/21/2023), s/p 2 overlapping LAD stents 08/31/2023), Gynecological (partial hysterectomy) and Orthopedic (TKR 2009, left humeral ORIF 2017, Left reverse shoulder 2020)
Social History
Tobacco: Non-Smoker
Alcohol: None
Drug: None
Personal:
Living: With Family
Family History
Family History: CAD, Cancer and Hypertension
Allergies / Home Medications
Allergy/AdvReac Type Severity Reaction Status Date / Time
adalimumab [From Humira] Allergy cough Verified 07/18/24 14:44
empagliflozin Allergy Rash Verified 07/18/24 14:44
[From Jardiance]
infliximab [From Remicade] Allergy Rash Verified 07/18/24 14:44
monosodium glutamate Allergy CONGESTION Verified 07/18/24 14:44
[Monosodium Glutamate]
perfume Allergy DIFFICULTY Verified 07/18/24 14:44
BREATHING
�Medication �Instructions �Recorded �Confirmed �Type
pantoprazole 40 mg tablet,delayed 40 mg PO DAILY Gastrointestinal 06/07/23 05/29/24 History
release Issue
venlafaxine 150 mg 150 mg PO DAILY Mental 06/16/23 05/29/24 History
capsule,extended release 24 hr Health/Anxiety
insulin glargine U-300 conc 300 32 unit SC HS Diabetes 07/30/23 05/29/24 History
unit/mL (3 mL) subcutaneous pen
(Toujeo Max U-300 SoloStar)
levothyroxine 75 mcg tablet 75 mcg PO DAILY Thyroid 07/30/23 05/29/24 History
metformin 500 mg tablet 1,000 mg PO BID Diabetes 07/30/23 05/29/24 History
montelukast 10 mg tablet 10 mg PO HS Allergies 07/30/23 05/29/24 History
venlafaxine 75 mg capsule,extended 75 mg PO DAILY Mental 07/30/23 05/29/24 History
release 24 hr Health/Anxiety
wdbhhiinar-lopintayczaio-opjthcbs 1 tab PO Q6H PRN migraine headache 08/29/23 05/29/24 History
50 mg-325 mg-40 mg tablet
insulin aspart U-100 100 unit/mL 0 sliding scale dose SC 09/01/23 05/29/24 History
(3 mL) subcutaneous pen (Novolog DIRECTED Diabetes
FlexPen U-100 Insulin aspart)
Orencia 750 mg IV Q4W rheumatoid arthritis 11/01/23 05/29/24 History
atorvastatin 80 mg tablet 40 mg PO HS High Cholesterol 11/01/23 05/29/24 History
acetaminophen 500 mg tablet 1,000 mg PO BIDPRN PRN mild pain 11/20/23 05/29/24 History
(Tylenol Extra Strength)
aspirin 81 mg tablet,delayed 81 mg PO DAILY Blood Clot 11/20/23 05/29/24 History
release Prevention/Tx
cholecalciferol (vitamin D3) 25 50 mcg PO DAILY Supplement 11/20/23 05/29/24 History
mcg (1,000 unit) tablet
magnesium oxide 400 mg PO DAILY Supplement 11/20/23 05/29/24 History
nitroglycerin 0.4 mg sublingual 0.4 mg sublingual PRN PRN chest 11/20/23 05/29/24 History
tablet pain
sacubitril 24 mg-valsartan 26 mg 1 tab PO BID Heart 12/12/23 05/29/24 History
tablet (Entresto) Disease/Condition
clopidogrel 75 mg tablet 75 mg PO DAILY Blood Clot 02/26/24 05/29/24 History
Prevention/Tx
evolocumab 140 mg/mL subcutaneous 140 mg SC Q2W High Cholesterol 02/26/24 05/29/24 History
pen injector (moniquekinga Cardona) [1st & 15th of month]
furosemide 40 mg tablet 20 mg PO DAILY Fluid 02/26/24 05/29/24 History
Retention/Swelling
isosorbide mononitrate 30 mg 15 mg PO DAILY Heart 02/26/24 05/29/24 History
tablet,extended release 24 hr Disease/Condition
lorazepam 0.5 mg tablet 0.5 mg PO HS PRN sleep/anxiety 02/26/24 05/29/24 History
spironolactone 25 mg tablet 12.5 mg PO DAILY Blood 02/26/24 05/29/24 History
(Aldactone) Pressure/edema
carvedilol 12.5 mg tablet 12.5 mg PO BID #60 tabs 02/27/24 05/29/24 Rx
midodrine 5 mg tablet 5 mg PO TID@0800,1300,1800 #90 tabs 02/27/24 05/29/24 Rx
semaglutide 0.25 mg or 0.5 mg (2 0.5 mg SC CABALLERO 05/14/24 05/29/24 History
mg/3 mL) subcutaneous pen injector
(Ozempic)
Review of Systems
-
History Source: Patient
All other systems: Negative unless noted
Physical Exam
Vital Signs
Temp Pulse Resp BP Pulse Ox
98.0 F 85 18 102/52 97
07/18/24 14:41 07/18/24 16:15 07/18/24 16:21 07/18/24 16:00 07/18/24 16:22
Lab Results
07/18/24 15:40
07/18/24 15:40
Troponin I < 0.012 ng/ml 07/18/24 15:40
Rfs-I-Pdwugbsnaaa Pept 1020 pg/ml 07/18/24 15:40
Physical Exam
General: No Apparent Distress and Comfortable
HEENT: Normocephalic, Anicteric and Moist Mucous Membranes
Respiratory: Clear and Non Labored Respirations
Cardiac: S1/S2 and Regular Rhythm
Musculoskeletal: No Clubbing, No Cyanosis and Edema (trace of B/L LE)
Skin: Warm, Dry and Other (Sternotomy scar)
Neuro: AO x 3
Impression / Plan
-
PCP: Melinda Stoddard MD
Manufacturing Engineer Machining: Dr. Cece Dyer
Impression:
Presentation with CP
Negative trop x1
CAD
s/p CABG x4 FIELD to LAD, SVG to RPDA-RPL, SVG to D1 06/21/2023
Redo sternotomy x2 d/t intraoperative kinking of SVG-RPDA
s/p two overlapping LAD stents after having new 90-95% lesion at FIELD-LAD anastomosis 08/31/2023
mid to distal LAD stents are patent with a focal area of eccentric 50% in-stent restenosis at the level of the stents overlapping by cath 11/01/23
Chronic systolic HFrEF, 35%
Ischemic cardiomyopathy
s/p Medtronic DC ICD 12/12/23 with revision 05/29/24
HTN
HLD
IDDM
ROBERT
RA
Echo 10/11/23: Moderately reduced LV systolic function, LVEF of 38%,� Hypokinesis of the inferior lateral, anterior, mid and distal septal dominguez. Stage I diastolic dysfunction suggestive of abnormal relaxation. Normal right ventricular size.� Normal
right ventricular function. Mitral valve opens normally. Thickened mitral valve leaflets. Mild mitral regurgitation. Thickened, trileaflet aortic valve with normal leaflet excursion.� Aortic valve sclerosis.� Trace aortic regurgitation is seen.
ECHO 04/15/24: Technically difficult study, use Definity in future, severe global hypokinesis with apical akinesis, EF 20%, MAC, trace MR, trivial AR, trivial TR
Plan:
-She presents with waxing and waning chest pain over the last 5 days. She also reports some dizziness with taking deep breaths, and vomiting/diarrhea
-Significant CAD history as above
-Presently pain-free
-EKG without acute ischemic changes noted in ER today. await results of device interrogation
-Chest x-ray pending
-Troponin negative x 1, would check 2nd trop
-Etiology of chest discomfort at this time unclear, some typical and some atypical features
-If troponins remain negative, would attempt to medically manage
-proBNP lower than prior at 1020. Reports outpatient weight stable
-consider check follow up echo in AM
-continue asa, plavix
-of note, on ozempic since 04/2024
-Chronically on Entresto, Coreg, Aldactone due to ischemic cardiomyopathy. She did not tolerate Jardiance due to rash and recurrent UTIs. Was being considered for Corlanor as an outpatient if heart rates remained elevated. On p.o. Lasix 20 mg
daily
-will arrange OP cardiac follow up
-d/w patient and at bedside
Data Reviewed
-
EKG: Tracing Personally Visualized and interpreted
Medical Tests (Nuc Med, Echo etc): Report Reviewed by me
Labs: Labs Reviewed by me
Old Records: Reviewed
[2024-07-18 19:18] LABS: Troponin I < 0.012 ng/ml
== END 2024-07-18 20:28 | disposition home or self-care (01) ==
LOC: EMR 14:33
PROVIDERS: Physician Assistant; EMERGENCY PHYSICIAN Emergency Medicine; FAMILY PHYSICIAN Internal Medicine; OTHER PHYSICIAN Nuclear Medicine Nuclear Cardiology
DX: I11.0 Hypertensive heart disease with heart failure (principal); I50.20 Unspecified systolic (congestive) heart failure; E78.5 Hyperlipidemia, unspecified; E11.9 Type 2 diabetes mellitus without complications; I25.10 Atherosclerotic heart disease of native coronary artery without angina pectoris; Z95.0 Presence of cardiac pacemaker
CPT/HCPCS: 99285; 93288; 71046; 80053; 83690; 83880; 84484; 85025; 93005

== ENCOUNTER → 2024-07-31 09:21 | Outpatient (REF) | payer MEDICARE, BC, SELFPAY ==
--- NOTE | 2024-07-31 10:40 | CARDSERVLU ---
Echocardiogram with Lumason completed after protocol screening completed. Allergies verified.
Patent IV site: _Right hand 22 G PC inserted by IV team ____
IV site flushed with 0.9% NaCl pre and post administration.
Diluted bolus method utilized to enhance visualization of ventricular domniguez.
Total volume given: __5__ mL
Patient tolerated all procedures well without complications.
Heplock D/C ed at 1028, site clear, no redness, no edema. Pressure held for few minutes as pt on anticoagulants, no bleeding. 2x2 applied and taped. No change in status, offers no complaints.
== END ==
LOC: RCS 09:21
PROVIDERS: ATTENDING PHYSICIAN Physician Assistant; FAMILY PHYSICIAN Internal Medicine
DX: Z95.810 Presence of automatic (implantable) cardiac defibrillator (principal)
CPT/HCPCS: 93306; Q9950

== ENCOUNTER → 2025-04-21 06:51 | Outpatient (REF) | payer MEDICARE, BC, SELFPAY ==
[2025-04-21 08:18] LABS: NT-proBNP 685 pg/ml
[2025-04-21 08:31] LABS: Blood Urea Nitrogen 25 mg/dl (7-17); Carbon Dioxide 30 mmol/L (22-30); Chloride 103 mmol/L (98-107); Glucose 155 mg/dl (70-99); Potassium 4.9 mmol/L (3.5-5.1); Sodium 141 mmol/L (135-145); eGFR > 60.00
[2025-04-21 09:03] LABS: TSH Reflex To Free T4 2.42 uIU/ml (0.47-4.68)
== END ==
LOC: REG 06:51
PROVIDERS: ATTENDING PHYSICIAN Internal Medicine Cardiovascular Disease; FAMILY PHYSICIAN Internal Medicine
DX: I25.5 Ischemic cardiomyopathy (principal); F41.9 Anxiety disorder, unspecified
CPT/HCPCS: 36415; 80048; 83735; 83880; 84443

== ENCOUNTER → 2025-04-23 14:21 | Outpatient (REF) | payer MEDICARE, BC, SELFPAY | LOC: RCS 14:21 | PROVIDERS: ATTENDING PHYSICIAN Nurse Practitioner Acute Care; FAMILY PHYSICIAN Internal Medicine | DX: Z95.1 Presence of aortocoronary bypass graft (principal); I25.5 Ischemic cardiomyopathy; R07.89 Other chest pain | CPT/HCPCS: 93306 ==